=== PATIENT | male | born 1970 | race Caucasian/White ===

== ENCOUNTER 2023-12-31 16:48 | Observation (INO) | payer OTHER ==
[2023-12-31 17:00] VITALS: BP 150/89; PULSE 92; RESP 20; TEMP 98.5
--- NOTE | 2023-12-31 17:02 | ED ---
Chest Pain HPI <Tasia Mcgowan - Last Filed: 12/31/23 16:55> <Murphy Daniel - Last Filed: 12/31/23 19:37> - General Stated Complaint: Chest pain Time Seen by Provider: 12/31/23 16:55 - History of Present Illness Initial Comments: Quick [id number] male presenting to the ER with chief complaint of chest pain x 2 days. States the pain is in his mid chest and has been worsening in severity. Also states he has pain in his bilateral hands and lower back. He has never had this pain before. Denies blood thinners. Admits history of COPD. (Tasia Mcgowan) This is a 53-year-old male who presents to the emergency department stating that he is an alcoholic and he drank yesterday for sure and maybe even today but he cannot remember. Patient states ever since he stopped drinking today he started vomiting and having diarrhea. Patient states he is also having chest pain and he believes some shortness of breath. Patient states he continues to be nauseous at this time. Patient Nuys any fever chills or cough or patient states he does have a history of cirrhosis. Patient denies any back pain. Patient denies any headache patient denies numbness weakness. (Murphy Daniel) - Related Data Home Medications Medication Instructions Recorded Confirmed Albuterol Inhaler [Ventolin Hfa 1 puff INHALATION RT-Q4H PRN 12/31/23 12/31/23 Inhaler] Buprenorphine/Naloxone 8Mg/2Mg 0.5 film SL DAILY 12/31/23 12/31/23 [Suboxone 8-2Mg Film] Buprenorphine/Naloxone 8Mg/2Mg 0.5 film SL DAILY PRN 12/31/23 12/31/23 [Suboxone 8-2Mg Film] FLUoxetine HCL [PROzac] 10 mg PO DAILY 12/31/23 12/31/23 Famotidine 20 mg PO HS PRN 12/31/23 12/31/23 Folic Acid 1 mg PO DAILY 12/31/23 12/31/23 Furosemide [Lasix] 40 mg PO DAILY 12/31/23 12/31/23 Gabapentin [Neurontin] 600 mg PO BID 12/31/23 12/31/23 Ibuprofen [Motrin] 600 mg PO Q6H PRN 12/31/23 12/31/23 LORazepam 0.5 mg PO TID 12/31/23 12/31/23 Lactulose [Constulose] 20 gm PO TID PRN 12/31/23 12/31/23 Potassium Chloride ER [K-Dur 20] 20 meq PO DAILY 12/31/23 12/31/23 SILVER sulfADIAZINE CREAM 1 applic TOPICAL DAILY 12/31/23 12/31/23 [Silvadene Cream] Tamsulosin HCl [Flomax] 0.4 mg PO DAILY 12/31/23 12/31/23 amLODIPine [Norvasc] 5 mg PO DAILY 12/31/23 12/31/23 Allergies Allergy/AdvReac Type Severity Reaction Status Date / Time No Known Allergies Allergy Verified 12/31/23 19:09 Review of Systems ROS Other: All systems not noted in ROS Statement are negative. <Tasia Mcgowan - Last Filed: 12/31/23 16:55> ROS Other: All systems not noted in ROS Statement are negative. <Murphy Daniel - Last Filed: 12/31/23 19:37> ROS Statement: Those systems with pertinent positive or pertinent negative responses have been documented in the HPI. General Exam <Tasia Mcgowan - Last Filed: 12/31/23 16:55> <Murphy Daniel - Last Filed: 12/31/23 19:37> - General Exam Comments Initial Comments: Visual Physical Exam General: Well-appearing, nontoxic, no acute distress. Head: Normocephalic, atraumatic Eyes: PERRLA, EOMI ENT: Airway patent Chest: Nonlabored breathing Skin: No visual rash, normal skin tone Neuro: Alert and oriented 3 Musculoskeletal: No gross abnormalities (Tasia Mcgowan) GENERAL: Patient is well-developed and well-nourished. Patient is nontoxic and well- hydrated and is in mild distress. ENT: Neck is soft and supple. No significant lymphadenopathy is noted. Oropharynx is clear. Moist mucous membranes. Neck has full range of motion without eliciting any pain. EYES: The sclera were anicteric and conjunctiva were pink and moist. Extraocular movements were intact and pupils were equal round and reactive to light. Eyelids were unremarkable. PULMONARY: Unlabored respirations. Good breath sounds bilaterally. No audible rales rhonchi or wheezing was noted. CARDIOVASCULAR: There is a regular rate and rhythm without any murmurs gallops or rubs. ABDOMEN: Soft and nontender with normal bowel sounds. SKIN: Skin is clear with no lesions or rashes and otherwise unremarkable. NEUROLOGIC: Patient is alert and oriented x3. Cranial nerves II through XII are grossly intact. Motor and sensory are also intact. Normal speech, volume and content. Symmetrical smile. MUSCULOSKELETAL: Normal extremities with adequate strength and full range of motion. LYMPHATICS: No significant lymphadenopathy is noted PSYCHIATRIC: Normal psychiatric evaluation. (Murphy Daniel) Course Vital Signs 12/31/23 16:54 Temperature 98.5 F Pulse Rate 92 Respiratory 20 Rate Blood Pressure 150/89 O2 Sat by Pulse 98 Oximetry Chest Pain MDM <Tasia Mcgowan - Last Filed: 12/31/23 16:55> <Murphy Daniel - Last Filed: 12/31/23 19:37> - MDM I completed the quick note portion of this chart signed Tasia Mcgowan PA-C (Tasia Mcgowan) EKG is interpreted by myself. EKG shows a sinus rhythm at [address] was 169 QRS is 119 QT interval is 413 QTc is 440. Patient's EKG shows no ST segment Elevation was pt. sent in by a medical professional or institution ([facility], [facility], urgent care, hospital, or fci...) When possible be specific @ -No Did you speak to anyone other than the patient for history (EMS, parent, family, police, friend...)? What history was obtained from this source @ -Patient's significant other gave quite a bit of history because the patient was not feeling up to give all of the history. Did you review nursing and triage notes (agree or disagree)? Why? @ -I reviewed and agree with nursing and triage notes Were old charts reviewed (outside hosp., previous admission, EMS record, old EKG, old radiological studies, urgent care reports/EKG's, fci records)? Report findings @ -No old charts were reviewed Differential Diagnosis? @ -Differential Chest Pain: Stable Angina, Unstable Angina, STEMI, NSTEMI Aortic Dissection, Pneumothorax, Musculoskeletal, Esophageal Spasm GERD, Cholecystitis, Pancreatitis, Zoster, this is not meant to be an all-inclusive list. Alcohol withdrawal, alcohol intoxication, EKG interpreted by me (3pts min.). @ -As above X-rays interpreted by me (1pt min.). @ -Chest x-ray shows some slight pulmonary edema CT interpreted by me (1pt min.). @ -None done U/S interpreted by me (1pt. min.). @ -None done What testing was considered but not performed or refused? (CT, X-rays, U/S, labs)? Why? @ -None What meds were considered but not given or refused? Why? @ -None Did you discuss the management of the patient with other professionals (professionals i.e. , PA, [facility], lab, RT, psych nurse, social worker clinical, blind eyeletter, teacher, president and chief commercial officer, rn field case manager)? Give summary @ -I spoke with sound physicians agreed to admit the patient to the patient wrote admitting orders Was smoking cessation discussed for >3mins.? @ -No Was critical care preformed (if so, how long)? @ -No Were there social determinants of health that impacted care today? How? (Homelessness, low income, unemployed, alcoholism, drug addiction, transportation, low edu. Level, literacy, decrease access to med. care, alf, rehab)? @ -No Was there de-escalation of care discussed even if they declined (Discuss DNR or withdrawal of care, Hospice)? DNR status @ -No What co-morbidities impacted this encounter? (DM, HTN, Smoking, COPD, CAD, Cancer, CVA, ARF, Chemo, Hep., AIDS, mental health diagnosis, sleep apnea, morbid obesity)? @ -None Was patient admitted / discharged? Hospital course, mention meds given and route, prescriptions, significant lab abnormalities, going to OR and other pertinent info. @ -Patient was intoxicated. Patient did receive her liter of fluid but because of the x-ray also received some Lasix. Patient received Zofran for the nausea and was feeling better. Patient's initial troponin was negative but patient will be admitted for chest pain and cardiology will be consulted Undiagnosed new problem with uncertain prognosis? @ -No Drug Therapy requiring intensive monitoring for toxicity (Heparin, Nitro, Insulin, Cardizem)? @ -No Were any procedures done? @ -No Diagnosis/symptom? @ -Chest pain Acute, or Chronic, or Acute on Chronic? @ -Acute Uncomplicated (without systemic symptoms) or Complicated (systemic symptoms)? @ -Complicated Side effects of treatment? @ -No Exacerbation, Progression, or Severe Exacerbation? @ -No Poses a threat to life or bodily function? How? (Chest pain, USA, [place], pneumonia, PE, COPD, DKA, ARF, appy, cholecystitis, CVA, Diverticulitis, Homicidal, Suicidal, threat to staff... and all critical care pts) @ -Yes this could lead to an RI and endorgan dysfunction Diagnosis/symptom? @ -Alcohol intoxication Acute, or Chronic, or Acute on Chronic? @ -Acute Uncomplicated (without systemic symptoms) or Complicated (systemic symptoms)? @ -Complicated Side effects of treatment? @ -None Exacerbation, Progression, or Severe Exacerbation] @ -No Poses a threat to life or bodily function? @ -No (Murphy Daniel) Disposition <Tasia Mcgowan - Last Filed: 12/31/23 16:55> Time of Disposition: 19:37 <Murphy Daniel - Last Filed: 12/31/23 19:37> Clinical Impression: Chest pain, Alcohol intoxication Disposition: ADMITTED IP TO THIS HOSP Referrals: Timothy Huynh DO [Primary Care Provider] - 1-2 days
[2023-12-31] MEDS: ONDANSETRON 4 MG/2 ML VIAL IVP STA (17:38)
[2023-12-31] MEDS: SODIUM CHLORIDE 0.9% 1,000 ML IV ONE (17:39)
[2023-12-31 17:43] LABS: Basophils % (A) 0 %; Eosinophils # (A) 0.1 k/uL (0-0.7); Eosinophils % (A) 1 %; HCT 37.5 % (39.0-53.0); HGB 12.4 gm/dL (13.0-17.5); Lymphocytes # (A) 1.2 k/uL (1.0-4.8); Lymphocytes % (A) 13 %; MCH 32.8 pg (25.0-35.0); MCHC 33.1 g/dL (31.0-37.0); MCV 99.1 fL (80.0-100.0); Mean Platelet Volume 6.8; Monocytes # (A) 0.5 k/uL (0-1.0); Monocytes % (A) 5 %; Neutrophils # (A) 7.3 k/uL (1.3-7.7); Neutrophils % (A) 79 %; Platelet Count 158 k/uL (150-450); RBC 3.78 m/uL (4.30-5.90); WBC 9.3 k/uL (3.8-10.6)
[2023-12-31 17:53] LABS: INR 1.4 (<1.2); Partial Thromboplastin Time 32.9 sec (22.0-30.0); Prothrombin Time 14.1 sec (10.0-12.5)
[2023-12-31 17:56] LABS: Magnesium 1.6 mg/dL (1.6-2.3)
[2023-12-31 17:57] LABS: ALT 34 U/L (4-49); AST 109 U/L (17-59); African American GFR (CKD) >90 (>60 ml/min/1.73 sqM); Albumin 3.5 g/dL (3.5-5.0); Alkaline Phosphatase 136 U/L (38-126); Anion Gap 7 mmol/L; Blood Urea Nitrogen 2 mg/dL (9-20); Calcium 8.2 mg/dL (8.4-10.2); Carbon Dioxide 28 mmol/L (22-30); Chloride 109 mmol/L (98-107); Glucose 151 mg/dL (74-99); Lipase 113 U/L (23-300); Non-African American GFR(CKD) >90 (>60 ml/min/1.73 sqM); Potassium 3.8 mmol/L (3.5-5.1); Sodium 144 mmol/L (137-145); Total Protein 8.3 g/dL (6.3-8.2)
--- NOTE | 2023-12-31 18:04 | XR ---
EXAMINATION TYPE: XR chest 2V DATE OF EXAM: 12/31/2023 COMPARISON: None HISTORY: 53-year-old male with chest pain TECHNIQUE: AP and lateral views FINDINGS: Heart mildly enlarged. Diffuse interstitial and vascular prominence. No consolidation or pleural effu sergio. There is large appearance to the right main pulmonary artery on the lateral view. IMPRESSION: Correlate for CHF with pulmonary vascular congestion. [facility], , 12/31/2023 6:01 PM
[2023-12-31] MEDS ORDERED: FUROSEMIDE 10 MG/ML 4 ML VIAL IV STA (18:36)
[2023-12-31] MEDS ORDERED: ASPIRIN 81 MG PO STA (19:37)
[2023-12-31] MEDS ORDERED: NITROGLYCERIN SL TABS 0.4 MG TAB SUBLINGUAL PRN (19:37)
[2023-12-31] MEDS ORDERED: LORazepam 2 MG/ML INJ IV PRN ×2 (19:40)
[2023-12-31] MEDS ORDERED: LORazepam 0.5 MG TAB PO PRN (19:40)
[2023-12-31] MEDS ORDERED: THIAMINE 100 MG/ML 2 ML VIAL IM STA (19:40)
[2023-12-31] MEDS ORDERED: LORazepam 1 MG TAB PO PRN ×2 (19:40)
[2024-01-01] MEDS ORDERED: NITROGLYCERIN OINT 1 INCH/GM PACKET TOPICAL SCH
[2024-01-01] MEDS ORDERED: ASPIRIN 325 MG TAB PO SCH (09:00)
== END 2023-12-31 20:40 | disposition left against medical advice (07) ==
LOC: EC 16:48 → 6NMEDSUR 19:17
PROVIDERS: ADMIT Student in an Organized Health Care Education/Training Program; ATTEND Student in an Organized Health Care Education/Training Program
DX: R07.89 Other chest pain (principal); F10.229 Alcohol dependence with intoxication, unspecified; K74.60 Unspecified cirrhosis of liver; J44.9 Chronic obstructive pulmonary disease, unspecified; M54.50 Low back pain, unspecified; M79.642 Pain in left hand; M79.641 Pain in right hand; R11.2 Nausea with vomiting, unspecified; R19.7 Diarrhea, unspecified; R06.02 Shortness of breath; Z79.899 Other long term (current) drug therapy
CPT/HCPCS: 96361; 96374; 99285; 36415; 93005; 83880; 80053; 83690; 83735; 84484; 85025; 85610; 85730; 71046; G0480; J2405; 80320

== ENCOUNTER 2024-01-18 17:55 | Inpatient (IN) | payer OTHER ==
--- NOTE | 2024-01-18 18:34 | ED ---
Extremity Problem HPI - General Chief complaint: Skin/Abscess/Foreign Body Stated complaint: ETOH R leg infection Time Seen by Provider: 01/18/24 18:07 Source: patient, family, RN notes reviewed, old records reviewed Mode of arrival: ambulatory Limitations: no limitations - History of Present Illness Initial comments: This is a 53-year-old male to the ER for evaluation today. This patient presents today for significant lower extremity swelling edema cellulitis drainage history of cellulitis on antibiotics with worsening symptoms. Significant history of alcohol disease and alcoholism diabetes coronary artery disease heart failure. MD Complaint: extremity pain, extremity swelling, other (Drainage from the right leg with increasing cellulitis and erythema) -: days(s) Location: right, lower extremity -: Yes myalgia, Yes arthralgia Radiation: proximal Severity scale (1-10): 7 Quality: aching Consistency: constant Improves with: nothing Worsens with: nothing Associated Symptoms: denies other symptoms - Related Data Home Medications Medication Instructions Recorded Confirmed Albuterol Inhaler [Ventolin Hfa 1 puff INHALATION RT-Q4H PRN 12/31/23 01/18/24 Inhaler] Buprenorphine/Naloxone 8Mg/2Mg 0.5 film SL DAILY 12/31/23 01/18/24 [Suboxone 8-2Mg Film] Buprenorphine/Naloxone 8Mg/2Mg 0.5 film SL DAILY PRN 12/31/23 01/18/24 [Suboxone 8-2Mg Film] FLUoxetine HCL [PROzac] 10 mg PO DAILY 12/31/23 01/18/24 Famotidine 20 mg PO HS PRN 12/31/23 01/18/24 Folic Acid 1 mg PO DAILY 12/31/23 01/18/24 Gabapentin [Neurontin] 600 mg PO BID 12/31/23 01/18/24 Lactulose [Constulose] 20 gm PO TID PRN 12/31/23 01/18/24 Potassium Chloride ER [K-Dur 20] 20 meq PO DAILY 12/31/23 01/18/24 SILVER sulfADIAZINE CREAM 1 applic TOPICAL DAILY 12/31/23 01/18/24 [Silvadene Cream] Tamsulosin HCl [Flomax] 0.4 mg PO DAILY 12/31/23 01/18/24 amLODIPine [Norvasc] 5 mg PO DAILY 12/31/23 01/18/24 traMADol HCL 50 mg PO TID PRN 01/18/24 01/18/24 Previous Rx's Medication Instructions Recorded Cephalexin [Keflex] 500 mg PO Q6HR 7 Days #28 cap 01/22/24 Furosemide [Lasix] 40 mg PO Q12HR #120 tab 01/22/24 Thiamine [Vitamin B-1] 100 mg PO DAILY #90 tab 01/22/24 Allergies Allergy/AdvReac Type Severity Reaction Status Date / Time chlordiazepoxide Allergy Hallucinati Verified 01/18/24 20:38 [From Librium] ons lisinopril Allergy Anaphylaxis Verified 01/18/24 20:38 Review of Systems ROS Statement: Those systems with pertinent positive or pertinent negative responses have been documented in the HPI. ROS Other: All systems not noted in ROS Statement are negative. Past Medical History Past Medical History: Heart Failure, COPD, Hypertension, Liver Disease Additional Past Medical History / Comment(s): cirrhosis, alcoholism, ascites Additional Past Surgical History / Comment(s): L Lung removed Smoking Status: Never smoker Past Alcohol Use History: Abuse, Heavy Past Drug Use History: None Reported General Exam Limitations: no limitations General appearance: alert, in no apparent distress Head exam: Present: atraumatic, normocephalic, normal inspection Eye exam: Present: normal appearance, PERRL, EOMI. Absent: scleral icterus, conjunctival injection, periorbital swelling ENT exam: Present: normal exam, mucous membranes moist Neck exam: Present: normal inspection. Absent: tenderness, meningismus, lymphadenopathy Respiratory exam: Present: normal lung sounds bilaterally. Absent: respiratory distress, wheezes, rales, rhonchi, stridor Cardiovascular Exam: Present: regular rate, normal rhythm, normal heart sounds. Absent: systolic murmur, diastolic murmur, rubs, gallop, clicks GI/Abdominal exam: Present: soft, normal bowel sounds. Absent: distended, t enderness, guarding, rebound, rigid Extremities exam: Present: normal inspection, full ROM, normal capillary refill. Absent: tenderness, pedal edema, joint swelling, calf tenderness Back exam: Present: normal inspection Neurological exam: Present: alert, oriented X3, CN II-XII intact Psychiatric exam: Present: normal affect, normal mood Skin exam: Present: warm, dry, intact, normal color. Absent: rash Course Vital Signs 1101/18/24 01/18/24 17:58 19:06 20:06 Temperature 98.2 F 97.9 F Pulse Rate 76 80 79 Respiratory 17 18 19 Rate Blood Pressure 141/78 131/77 132/72 O2 Sat by Pulse 95 95 96 Oximetry 01/18/24 01/19/24 01/19/24 22:48 00:51 02:00 Temperature 97.9 F Pulse Rate 80 79 86 Respiratory 18 18 20 Rate Blood Pressure 139/86 130/74 114/60 O2 Sat by Pulse 93 L 95 96 Oximetry 01/19/24 01/19/24 01/19/24 06:00 07:36 07:39 Temperature 97.8 F Pulse Rate 85 92 Respiratory 20 17 Rate Blood Pressure 130/78 127/74 O2 Sat by Pulse 96 95 94 L Oximetry 01/19/24 01/19/24 01/19/24 08:34 09:42 10:35 Temperature Pulse Rate 86 93 81 Respiratory 16 20 16 Rate Blood Pressure 138/79 121/71 O2 Sat by Pulse 94 L 96 Oximetry 01/19/24 01/19/24 01/19/24 11:46 12:33 13:00 Temperature Pulse Rate 85 93 84 Respiratory 17 17 18 Rate Blood Pressure 133/79 109/63 O2 Sat by Pulse 93 L 93 L Oximetry 01/19/24 01/19/24 01/19/24 14:00 15:00 17:50 Temperature Pulse Rate 75 92 80 Respiratory 16 15 18 Rate Blood Pressure 165/83 109/63 O2 Sat by Pulse 94 L 90 L Oximetry 01/19/24 01/19/24 01/20/24 19:41 22:22 07:22 Temperature 99.1 F Pulse Rate 85 98 102 H Respiratory 19 17 18 Rate Blood Pressure 149/98 145/92 O2 Sat by Pulse 92 L 96 99 Oximetry 01/20/24 01/20/24 01/20/24 11:20 13:08 15:57 Temperature 99.0 F 98.6 F Pulse Rate 98 79 83 Respiratory 18 18 18 Rate Blood Pressure 135/77 120/73 127/74 O2 Sat by Pulse 94 L 98 94 L Oximetry - Reevaluation(s) Reevaluation #1: 01/18/24 19:15 Medical records reviewed Reevaluation #2: 01/18/24 19:15 Patient symptoms unchanged Reevaluation #3: 01/18/24 19:15 Patient informed of results questions answered Reevaluation #4: Was pt. sent in by a medical professional or institution ([facility], [facility], urgent care, hospital, or penitentiary...) When possible be specific @ -no Did you speak to anyone other than the patient for history (EMS, parent, family, police, friend...)? What history was obtained from this source @ -no Did you review nursing and triage notes (agree or disagree)? Why? @ -agree Are old charts reviewed (outside hosp., previous admission, EMS record, old EKG, old radiological studies, urgent care reports/EKG's, penitentiary records)? Report findings @ -yes Differential Diagnosis (chest pain, altered mental status, abdominal pain women, abdominal pain men, vaginal bleeding, weakness, fever, dyspnea, syncope, headache, dizziness, GI bleed, back pain, seizure, CVA, palpatations, mental health, musculoskeletal)? @ -prior EKG interpreted by me (3pts min.). @ -yes X-rays interpreted by me (1pt min.). @ -yes negative for acute disease CT interpreted by me (1pt min.). @ -Yes negative for acute disease U/S interpreted by me (1pt. min.). @ -no What testing was considered but not performed or refused? (CT, X-rays, U/S, labs)? Why? @ -none What meds were considered but not given or refused? Why? @ -none Did you discuss the management of the patient with other professionals (professionals i.e. [facility], [facility], lab, RT, psych nurse, social work supervisor, hand tool filer, teacher, telecommunications officer, welfare case worker)? Give summary @ -no Was smoking cessation discussed for >3mins.? @ -no Was critical care preformed (if so, how long)? @ -no Were there social determinants of health that impacted care today? How? (Ho melessness, low income, unemployed, alcoholism, drug addiction, transportation, low edu. Level, literacy, decrease access to med. care, retirement, rehab)? @ -none Was there de-escalation of care discussed even if they declined (Discuss DNR or withdrawal of care, Hospice)? DNR status @ -no What co-morbidities impacted this encounter? (DM, HTN, Smoking, COPD, CAD, Cancer, CVA, ARF, Chemo, Hep., AIDS, mental health diagnosis, sleep apnea, morbid obesity)? @ -none Was patient admitted / discharged? Hospital course, mention meds given and route, prescriptions, significant lab abnormalities, going to OR and other pertinent info. @ - 53 male with lower extremity swelling significant bilateral lower extremity swelling right lower extremity swelling edema and redness worsening despite antibiotics, significant abdominal pain and swelling concern for ascites. Patient admit for IV antibiotics Admitted Undiagnosed new problem with uncertain prognosis? @ -no Drug Therapy requiring intensive monitoring for toxicity (Heparin, Nitro, Insulin, Cardizem)? @ -no Were any procedures done? @ -no Diagnosis/symptom? @ -Abdominal pain ascites edema lower extremity edema and cellulitis Acute, or Chronic, or Acute on Chronic? @ -Acute Uncomplicated (without systemic symptoms) or Complicated (systemic symptoms)? @ -Complicated Side effects of treatment? @ -no Exacerbation, Progression, or Severe Exacerbation? @ -exacerbation Poses a threat to life or bodily function? How? (Chest pain, [place], [place], pneumonia, PE, COPD, DKA, ARF, appy, cholecystitis, CVA, Diverticulitis, Homicidal, Suicidal, threat to staff... and all critical care pts) @ -yes comorbid conditions Reevaluation #5: Differential Fever: Pneumonia, viral URI, endocarditis, myocarditis, pericarditis, otitis, sinusitis, peritonsillar Abscess, retropharyngeal Abscess, epiglottitis, peritonitis, appendicitis, Meghan cystitis, diverticulitis, hepatitis, colitis, UTI, PID, TOA, pyelonephritis, prostatitis, epididymitis, meningitis, encephalitis, pulmonary embolism, CVA, thyroid storm, pancreatitis, adrenal crisis, cavernous sinus thrombosis, this is not meant to be an all-inclusive list. - Consultations Consultation #1: Admitting physicians who agreed to admit this patient Medical Decision Making - Medical Decision Making 53 male with lower extremity swelling significant bilateral lower extremity swelling right lower extremity swelling edema and redness worsening despite antibiotics, significant abdominal pain and swelling concern for ascites. Patient admit for IV antibiotics - Lab Data Result diagrams: 01/19/24 06:17 01/21/24 05:36 Lab Results 01/18/24 01/18/24 01/18/24 Range/Units 18:47 18:47 18:47 WBC 11.4 H (3.8-10.6) k/uL RBC 3.69 L (4.30-5.90) m/uL Hgb 12.5 L (13.0-17.5) gm/dL Hct 36.7 L (39.0-53.0) % MCV 99.4 (80.0-100.0) fL MCH 33.9 (25.0-35.0) pg MCHC 34.1 (31.0-37.0) g/dL RDW 14.5 (11.5-15.5) % Plt Count 125 L (150-450) k/uL MPV 6.5 Neutrophils % 75 % Lymphocytes % 14 % Monocytes % 6 % Eosinophils % 2 % Basophils % 1 % Neutrophils # 8.5 H (1.3-7.7) k/uL Lymphocytes # 1.6 (1.0-4.8) k/uL Monocytes # 0.7 (0-1.0) k/uL Eosinophils # 0.2 (0-0.7) k/uL Basophils # 0.1 (0-0.2) k/uL Macrocytosis Slight PT 14.1 H (10.0-12.5) sec INR 1.3 H (<1.2) APTT 32.6 H (22.0-30.0) sec Sodium 141 (137-145) mmol/L Potassium 3.6 (3.5-5.1) mmol/L Chloride 107 (98-107) mmol/L Carbon Dioxide 27 (22-30) mmol/L Anion Gap 7 mmol/L BUN 5 L (9-20) mg/dL Creatinine 0.55 L (0.66-1.25) mg/dL Est GFR (CKD-EPI)AfAm >90 (>60 ml/min/1.73 sqM) Est GFR (CKD-EPI)NonAf >90 (>60 ml/min/1.73 sqM) Glucose 119 H (74-99) mg/dL Estimated Ave Glu mg/dL mg/dL Hemoglobin A1c (<=6.0) % Calcium 8.4 (8.4-10.2) mg/dL Phosphorus 4.7 H (2.5-4.5) mg/dL Magnesium 2.1 (1.6-2.3) mg/dL Total Bilirubin 2.1 H (0.2-1.3) mg/dL AST 214 H (17-59) U/L ALT 74 H (4-49) U/L Alkaline Phosphatase 160 H (38-126) U/L Troponin I (0.000-0.034) ng/mL NT-Pro-B Natriuret Pep 114 pg/mL Total Protein 8.8 H (6.3-8.2) g/dL Albumin 3.7 (3.5-5.0) g/dL Lipase 225 (23-300) U/L Serum Alcohol 327 H* mg/dL 01/18/24 01/18/24 Range/Units 18:47 18:47 WBC (3.8-10.6) k/uL RBC (4.30-5.90) m/uL Hgb (13.0-17.5) gm/dL Hct (39.0-53.0) % MCV (80.0-100.0) fL MCH (25.0-35.0) pg MCHC (31.0-37.0) g/dL RDW (11.5-15.5) % Plt Count (150-450) k/uL MPV Neutrophils % % Lymphocytes % % Monocytes % % Eosinophils % % Basophils % % Neutrophils # (1.3-7.7) k/uL Lymphocytes # (1.0-4.8) k/uL Monocytes # (0-1.0) k/uL Eosinophils # (0-0.7) k/uL Basophils # (0-0.2) k/uL Macrocytosis PT (10.0-12.5) sec INR (<1.2) APTT (22.0-30.0) sec Sodium (137-145) mmol/L Potassium (3.5-5.1) mmol/L Chloride (98-107) mmol/L Carbon Dioxide (22-30) mmol/L Anion Gap mmol/L BUN (9-20) mg/dL Creatinine (0.66-1.25) mg/dL Est GFR (CKD-EPI)AfAm (>60 ml/min/1.73 sqM) Est GFR (CKD-EPI)NonAf (>60 ml/min/1.73 sqM) Glucose (74-99) mg/dL Estimated Ave Glu mg/dL 105 mg/dL Hemoglobin A1c 5.3 (<=6.0) % Calcium (8.4-10.2) mg/dL Phosphorus (2.5-4.5) mg/dL Magnesium (1.6-2.3) mg/dL Total Bilirubin (0.2-1.3) mg/dL AST (17-59) U/L ALT (4-49) U/L Alkaline Phosphatase (38-126) U/L Troponin I <0.012 (0.000-0.034) ng/mL NT-Pro-B Natriuret Pep pg/mL Total Protein (6.3-8.2) g/dL Albumin (3.5-5.0) g/dL Lipase (23-300) U/L Serum Alcohol mg/dL - EKG Data -: EKG Interpreted by Me (EKG is sinus 72 QRS 126 QTc 439) - Radiology Data Radiology results: report reviewed (Chest x-ray positive for fluid overload, CT abdomen pelvis negative for acute disease), image reviewed Disposition Clinical Impression: Anasarca, Alcohol intoxication, Pulmonary edema, Bilateral lower leg cellulitis, Venous stasis dermatitis Disposition: ADMITTED IP TO THIS [facility] Time of Disposition: 20:40
[2024-01-18 18:59] LABS: Basophils # (A) 0.1 k/uL (0-0.2); Basophils % (A) 1 %; Eosinophils # (A) 0.2 k/uL (0-0.7); Eosinophils % (A) 2 %; HCT 36.7 % (39.0-53.0); HGB 12.5 gm/dL (13.0-17.5); Lymphocytes # (A) 1.6 k/uL (1.0-4.8); Lymphocytes % (A) 14 %; MCH 33.9 pg (25.0-35.0); MCHC 34.1 g/dL (31.0-37.0); MCV 99.4 fL (80.0-100.0); Macrocytosis Slight; Mean Platelet Volume 6.5; Monocytes # (A) 0.7 k/uL (0-1.0); Monocytes % (A) 6 %; Neutrophils # (A) 8.5 k/uL (1.3-7.7); Neutrophils % (A) 75 %; Platelet Count 125 k/uL (150-450); RBC 3.69 m/uL (4.30-5.90); RDW 14.5 % (11.5-15.5); WBC 11.4 k/uL (3.8-10.6)
[2024-01-18] MEDS: ONDANSETRON 4 MG/2 ML VIAL IVP STA (19:00)
[2024-01-18] MEDS: MORPHINE SULFATE 4 MG/ML SYRINGE IV STA (19:04)
[2024-01-18] MEDS: SODIUM CHLORIDE 0.9% 1,000 ML IV STA (19:04)
[2024-01-18] MEDS ORDERED: LORazepam 1 MG TAB PO PRN ×2 (19:15)
[2024-01-18] MEDS ORDERED: LORazepam 2 MG/ML INJ IV PRN ×3 (19:15)
[2024-01-18 19:18] LABS: INR 1.3 (<1.2); Partial Thromboplastin Time 32.6 sec (22.0-30.0); Prothrombin Time 14.1 sec (10.0-12.5)
[2024-01-18 19:19] LABS: ALT 74 U/L (4-49); AST 214 U/L (17-59); African American GFR (CKD) >90 (>60 ml/min/1.73 sqM); Albumin 3.7 g/dL (3.5-5.0); Alkaline Phosphatase 160 U/L (38-126); Anion Gap 7 mmol/L; Blood Urea Nitrogen 5 mg/dL (9-20); Calcium 8.4 mg/dL (8.4-10.2); Carbon Dioxide 27 mmol/L (22-30); Chloride 107 mmol/L (98-107); Glucose 119 mg/dL (74-99); Lipase 225 U/L (23-300); Magnesium 2.1 mg/dL (1.6-2.3); Non-African American GFR(CKD) >90 (>60 ml/min/1.73 sqM); Phosphorus 4.7 mg/dL (2.5-4.5); Potassium 3.6 mmol/L (3.5-5.1); Sodium 141 mmol/L (137-145); Total Bilirubin 2.1 mg/dL (0.2-1.3); Total Protein 8.8 g/dL (6.3-8.2)
[2024-01-18 19:24] LABS: NT-Pro-B-Type Natriuretic Pept 114 pg/mL
[2024-01-18 19:56] LABS: Alcohol 327 mg/dL
--- NOTE | 2024-01-18 20:16 | XR ---
EXAMINATION TYPE: XR chest 2V DATE OF EXAM: 01/18/2024 8:03 PM COMPARISON: Chest radiographs from 2523 CLINICAL INDICATION: Male, 53 years old with history of Weakness; [facility] TECHNIQUE: XR chest 2V Frontal and lateral views of the chest. FINDINGS: Lungs/Pleura: There is no evidence of pleural effusion, focal consolidation, or pneumothorax. Pulmonary vascularity: Pulmonary vascular congestion. Heart/mediastinum: Cardiomediastinal silhouette is enlarged and stable. Musculoskeletal: No acute osseous pathology. IMPRESSION: Cardiomegaly and mild pulmonary vascular congestion. Correlate with BNP for congestive heart failure. [facility], , 01/18/2024 8:13 PM
[2024-01-18] MEDS ORDERED: NALOXONE 0.4 MG/ML 1 ML VIAL IV PRN (20:42)
[2024-01-18] MEDS: HYDROmorphone 0.5 MG/0.5 ML SYRINGE IVP PRN (22:51)
[2024-01-18] MEDS ORDERED: FAMOTIDINE 20 MG TAB PO PRN (22:59)
[2024-01-18] MEDS ORDERED: ALBUTEROL NEBULIZED 2.5 MG/3 ML INHALATION PRN (22:59)
--- NOTE | 2024-01-19 00:06 | P.HPIM ---
History of Present Illness H&P Date: 01/18/24 Chief Complaint: Right lower extremity infection History of present illness; 53-year-old male COPD (not on oxygen at home), cirrhosis, heart failure, hypertension, alcohol use disorder, history of cellulitis presents with complaints of right leg infection and swelling. Repo rts 1 month ago he was treated at [facility] for cellulitis of the right lower extremity, at that time he was treated with IV antibiotics which were then converted to oral which she completed as an outpatient. Reports for the last 2 weeks he has had to sleep in a recliner because when he sleeps in his bed he becomes very short of breath and is unable to breathe. Reports he is prescribed Lasix 40 mg p.o. daily but has not been taking it. States he has never seen his legs as swollen as they are now, reports they are 4-5 times larger than his normal baseline. Reports he has not been taking any of his prescription medications for approximately 1 month. Reports his last drink was 4:30 PM today and they normally drinks half a pint of liquor and 2-3 beers daily. Reports he is done with drinking and would like to quit. Surgical history: Left lower lobectomy Family history: Diabetes mellitus and hypertension Social history: Heavy alcohol use EKG done in the ER showed heart rate of 72 bpm, no ST segment elevation or depression seen, no T-wave inversions seen. Uncertain regular rhythm, QTc 439 ms ER CXR: Cardiomegaly and mild pulmonary vascular congestion. ER CT ABD: Taken but pending read. Patient admitted to internal medicine service REVIEW OF SYSTEMS: As stated above in HPI. The rest of the 14-point review of systems is negative. PHYSICAL EXAMINATION: GENERAL: The patient is alert and oriented x3. Well developed, well nourished. Obese. HEENT: Pupils are round and equally reacting to light. EOMI. No scleral icterus. No conjunctival pallor. Normocephalic, atraumatic. CARDIOVASCULAR: S1 and S2 present. No murmurs, rubs, or gallops. PULMONARY: Chest is clear to auscultation on the right, decreased lung sounds on the left base. ABDOMEN: Soft, tender, significantly distended, diminished bowel sounds, no palpable organomegaly. negative transmitted thrill MUSCULOSKELETAL: No joint swelling or deformity. EXTREMITIES: No cyanosis, clubbing,4+ pitting edema bilaterally up to the knee, NEUROLOGICAL: Gross neurological examination did not reveal any focal deficits. SKIN: No rashes. 4+ pitting edema bilaterally up to the knee, erythema appreciated on the medial aspect of the right foot with what appears to be a central healing scab from the prior cellulitis. Assessment:53-year-old male COPD (not on oxygen at home), cirrhosis, heart failure, hypertension, alcohol use disorder, history of cellulitis presents with complaints of right leg infection. Patient admitted to internal medicine for further workup of right lower extremity cellulitis and bilateral lower extremity swelling Plan: #Right lower extremity cellulitis: -follow up blood culture WBC 11.4 and neutrophils 8.5 -Continue Rocephin -ID consulted #Alcohol use disorder: #Transaminitis: >2:1 AST:ALT indicating potential alcoholic hepatitis #Previous diagnosis of cirrhosis: -AST 214, ALT 74, lipase 225 -Serum alcohol 327 -Benzo per [place] protocol PRN -Continue thiamine, folate, and Theragran seizure precautions monitor for alcohol withdrawal fall precautions #Anemia: Potentially secondary to alcohol use disorder -Hemoglobin 12.5 and MCV 99.4 -Ordered folate and B12 levels -Continue to monitor #History of heart failure: Unknown EF: peripheral edema , multifactorial , secondary to liver cirrhosis and suspected CHF -Troponin less than 0.012, BNP 814 -IV Lasix 40 mg twice daily -Echo ordered check ammonia F: NS 20 cc/h E: Thiamine, folate, and multivitamin N: Regular diet DVT ppx: Lovenox 40 SQ daily GI ppx: Protonix 40 mg p.o. daily Dispo: Pending clinical course. Lizy Suresh MD PGY-1 FM Dictation was produced using [employer] dictation software. please excuse any grammatical, word or spelling errors. Past Medical History Past Medical History: Heart Failure, COPD, Hypertension, Liver Disease Additional Past Medical History / Comment(s): cirrhosis, alcoholism, ascites Additional Past Surgical History / Comment(s): L Lung removed Smoking Status: Never smoker Past Alcohol Use History: Abuse, Heavy Past Drug Use History: None Reported Medications and Allergies Home Medications Medication Instructions Recorded Confirmed Type Albuterol Inhaler [Ventolin Hfa 1 puff INHALATION RT-Q4H PRN 12/31/23 01/18/24 History Inhaler] Buprenorphine/Naloxone 8Mg/2Mg 0.5 film SL DAILY 12/31/23 01/18/24 History [Suboxone 8-2Mg Film] Buprenorphine/Naloxone 8Mg/2Mg 0.5 film SL DAILY PRN 12/31/23 01/18/24 History [Suboxone 8-2Mg Film] FLUoxetine HCL [PROzac] 10 mg PO DAILY 12/31/23 01/18/24 History Famotidine 20 mg PO HS PRN 12/31/23 01/18/24 History Folic Acid 1 mg PO DAILY 12/31/23 01/18/24 History Furosemide [Lasix] 40 mg PO DAILY 12/31/23 01/18/24 History Gabapentin [Neurontin] 600 mg PO BID 12/31/23 01/18/24 History Ibuprofen [Motrin] 600 mg PO Q6H PRN 12/31/23 01/18/24 History LORazepam 0.5 mg PO TID 12/31/23 01/18/24 History Lactulose [Constulose] 20 gm PO TID PRN 12/31/23 01/18/24 History Potassium Chloride ER [K-Dur 20] 20 meq PO DAILY 12/31/23 01/18/24 History SILVER sulfADIAZINE CREAM 1 applic TOPICAL DAILY 12/31/23 01/18/24 History [Silvadene Cream] Tamsulosin HCl [Flomax] 0.4 mg PO DAILY 12/31/23 01/18/24 History amLODIPine [Norvasc] 5 mg PO DAILY 12/31/23 01/18/24 History traMADol HCL 50 mg PO TID PRN 01/18/24 01/18/24 History Allergies Allergy/AdvReac Type Severity Reaction Status Date / Time chlordiazepoxide Allergy Hallucinati Verified 01/18/24 20:38 [From Librium] ons lisinopril Allergy Anaphylaxis Verified 01/18/24 20:38 Physical Exam Vitals: Vital Signs Temp Pulse Resp BP Pulse Ox 01/18/24 22:48 80 18 139/86 93 L 01/18/24 20:06 97.9 F 79 19 132/72 96 01/18/24 19:06 80 18 131/77 95 01/18/24 17:58 98.2 F 76 17 141/78 95 Intake and Output 01/18/24 01/18/24 01/19/24 14:59 22:59 06:59 Other: Weight 113.398 kg Results CBC & Chem 7: 01/18/24 18:47 01/18/24 18:47 Labs: Abnormal Lab Results - Last 24 Hours (Table) 01/18/24 01/18/24 01/18/24 Range/Units 18:47 18:47 18:47 WBC 11.4 H (3.8-10.6) k/uL RBC 3.69 L (4.30-5.90) m/uL Hgb 12.5 L (13.0-17.5) gm/dL Hct 36.7 L (39.0-53.0) % Plt Count 125 L (150-450) k/uL Neutrophils # 8.5 H (1.3-7.7) k/uL PT 14.1 H (10.0-12.5) sec INR 1.3 H (<1.2) APTT 32.6 H (22.0-30.0) sec BUN 5 L (9-20) mg/dL Creatinine 0.55 L (0.66-1.25) mg/dL Glucose 119 H (74-99) mg/dL Phosphorus 4.7 H (2.5-4.5) mg/dL Total Bilirubin 2.1 H (0.2-1.3) mg/dL AST 214 H (17-59) U/L ALT 74 H (4-49) U/L Alkaline Phosphatase 160 H (38-126) U/L Total Protein 8.8 H (6.3-8.2) g/dL Serum Alcohol 327 H* mg/dL Assessment and Plan Assessment: I have seen and evaluated the patient today. I Discussed the case with the resident and agree with the resident's findings I edited the assessment and plan as necessary as documented in the resident's note.
--- NOTE | 2024-01-19 00:09 | CT ---
EXAM: CT Abdomen and Pelvis Without Intravenous Contrast CLINICAL HISTORY: ITS.REASON CT Reason: pain,ascites TECHNIQUE: Axial computed tomography images of the abdomen and pelvis without intravenous contrast. CTDI is 15.9 mGy and DLP is 1139.4 mGy-cm. This CT exam was performed using one or more of the following dose reduction techniques: automated exposure control, adjustment of the mA and/or kV according to patient size, and/or use of iterative reconstruction technique. COMPARISON: No relevant prior studies available. FINDINGS: Lung bases: Atelectasis at the lung bases. ABDOMEN: Liver: Cirrhotic liver. Gallbladder and bile ducts: Unremarkable. Pancreas: Unremarkable. Spleen: Splenomegaly. Adrenals: Unremarkable. Kidneys and ureters: Unremarkable. No obstructing stones. No hydronephrosis. Stomach and bowel: Unremarkable. PELVIS: Appendix: No findings to suggest acute appendicitis. Bladder: Unremarkable. Reproductive: Unremarkable as visualized. ABDOMEN and PELVIS: Intraperitoneal space: No significant ascites. No free air. Bones/joints: Avascular necrosis in the femoral heads. Soft tissues: Lower extremity and scrotal soft tissue edema. Vasculature: Portosystemic varices. Lymph nodes: Enlarged reactive appearing inguinal lymph nodes. IMPRESSION: 1. Cirrhotic liver. 2. Atelectasis at the lung bases. 3. Splenomegaly. 4. Portosystemic varices. 5. No significant ascites. 6. 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 7. Lower extremity and scrotal soft tissue edema. 8. Enlarged reactive appearing inguinal lymph nodes.
[2024-01-19] MEDS ORDERED: DEXTROSE 50% SYRINGE 50 ML IVP PRN ×2 (00:26)
[2024-01-19] MEDS: MORPHINE SULFATE 4 MG/ML SYRINGE IV PRN (01:03)
[2024-01-19 07:35] LABS: Glucose,Whole Blood 112 mg/dL (70-110)
[2024-01-19] MEDS: INSULIN ASPART (NovoLOG) 100 UNIT/ML VIAL SQ SCH (07:38)
[2024-01-19] MEDS: PANTOPRAZOLE 40 MG TABLET PO SCH (07:55)
[2024-01-19] MEDS: GABAPENTIN 300 MG CAP PO SCH (08:19)
[2024-01-19] MEDS: FUROSEMIDE 10 MG/ML 4 ML VIAL IV SCH (08:19)
[2024-01-19] MEDS: amLODIPine 5 MG TAB PO SCH (08:20)
[2024-01-19] MEDS: FOLIC ACID 1 MG TAB PO SCH (08:20)
[2024-01-19] MEDS: THIAMINE 100 MG TAB PO SCH (08:20)
[2024-01-19] MEDS: TAMSULOSIN 0.4 MG CAP.ER.24H PO SCH (08:20)
[2024-01-19] MEDS: MULTIVITAMINS, THERA 1 EACH TAB PO SCH (08:20)
[2024-01-19] MEDS: FLUoxetine HCL 10 MG CAP PO SCH (08:46)
[2024-01-19] MEDS: ENOXAPARIN 40 MG/0.4 ML SYRINGE SQ SCH (09:10)
[2024-01-19 09:22] LABS: ALT 62 U/L (10-49); AST 166 U/L (14-35); Albumin 3.1 g/dL (3.8-4.9); Albumin/Globulin Ratio 0.67 Ratio (1.60-3.17); Alkaline Phosphatase 139 U/L (41-126); BUN/Creat Ratio 8.29 Ratio (12.00-20.00); Blood Urea Nitrogen 5.8 mg/dL (9.0-27.0); Calcium 8.4 mg/dL (8.7-10.3); Carbon Dioxide 22.5 mmol/L (21.6-31.8); Chloride 107 mmol/L (96-109); Globulin 4.6 g/dL (1.6-3.3); Glucose 115 mg/dL (70-110); Magnesium 2.2 mg/dL (1.5-2.4); Phosphorus 4.2 mg/dL (2.4-5.1); Potassium 3.8 mmol/L (3.5-5.5); Sodium 145 mmol/L (135-145); Total Bilirubin 1.6 mg/dL (0.3-1.2); Total Protein 7.7 g/dL (6.2-8.2)
[2024-01-19 09:30] LABS: Basophils % (A) 1.4 %; Eosinophils % (A) 2.7 %; HCT 33.6 % (39.6-50.0); HGB 11.4 g/dL (13.0-17.0); Lymphocytes # (A) 1.32 X 10*3/uL (0.90-5.00); MCH 33.5 pg (27.0-32.0); MCHC 33.9 g/dL (32.0-37.0); MCV 98.8 FL (80.0-97.0); Mean Platelet Volume 9.2 FL (9.5-12.2); Monocytes # (A) 0.71 X 10*3/uL (0.20-1.00); Monocytes % (A) 9.7 %; NRBC Per 100 WBC 0 X 10*3/uL (0.00-0.01); Neutrophils # (A) 4.98 X 10*3/uL (1.80-7.70); Neutrophils % (A) 67.7 %; Platelet Count 97 X 10*3/uL (140-440); WBC 7.35 X 10*3/uL (4.50-10.00)
[2024-01-19] MEDS: ONDANSETRON 4 MG/2 ML VIAL IVP PRN (09:50)
[2024-01-19] MEDS: LORazepam 0.5 MG TAB PO PRN (09:53)
--- NOTE | 2024-01-19 10:56 | CA ---
Transthoracic Echo Report Name: Chandan Noguera Age: 53 Gender: M : 1970 Exam Date: 01/19/2024 08:01 Exam Location: [place] [facility] Ht (in): 72 Wt (lb): 250 Ordering Physician: Lizy Suresh MD Attending/Referring Phys: Office Assistant Receptionist Avis Ortiz RDCS Procedure CPT: Indications: History of CHF, unknown EF Cardiac Hx: Technical Quality: Fair Contrast 1: Definity Total Dose (mL): 2 Contrast 2: Total Dose (mL): MEASUREMENTS (Male / Female) Normal Values 2D ECHO LV Diastolic Diameter PLAX 5.7 cm 4.2 - 5.9 / 3.9 - 5.3 cm LV Systolic Diameter PLAX 3.4 cm IVS Diastolic Thickness 1.3 cm 0.6 - 1.0 / 0.6 - 0.9 cm LVPW Diastolic Thickness 1.3 cm 0.6 - 1.0 / 0.6 - 0.9 cm LV Relative Wall Thickness 0.5 RV Internal Dim ED PLAX 2.7 cm LA Systolic Diameter LX 5.1 cm 3.0 - 4.0 / 2.7 - 3.8 cm LA Volume 78.5 cm??? 18 - 58 / 22 - 52 cm??? LA Volume Index 32.2 cm???/m??? 16 - 28 cm???/m??? M-MODE Aortic Root Diameter MM 3.4 cm LA Systolic Diameter MM 4.4 cm LA Ao Ratio MM 1.3 AV Cusp Separation MM 2.1 cm DOPPLER AV Peak Velocity 204.6 cm/s AV Peak Gradient 16.7 mmHg AV Mean Velocity 139.9 cm/s AV Mean Gradient 9.0 mmHg AV Velocity Time Integral 43.9 cm MV Area PHT 2.3 cm??? Mitral E Point Velocity 143.6 cm/s Mitral A Point Velocity 106.3 cm/s Mitral E to A Ratio 1.4 MV Deceleration Time 324.2 ms TR Peak Velocity 278.7 cm/s TR Peak Gradient 31.1 mmHg FINDINGS Left Ventricle Left ventricular ejection fraction is estimated at 55-60 %. Mildly increased septal wall thickness. Normal left ventricular systolic function with no obvious regional wall motion abnormalities. Right Ventricle Mild right ventricular dilatation. Right ventricular systolic pressure within normal limits. Right Atrium Normal right atrial size. Left Atrium Moderately increased left atrial diameter. Mildly increased left atrial volume. Mildly increased left atrial area. Mitral Valve Structurally normal mitral valve. Mild mitral regurgitation. No mitral stenosis. Aortic Valve Trileaflet aortic valve. No aortic stenosis. No aortic regurgitation. Tricuspid Valve Structurally normal tricuspid valve. Trace tricuspid regurgitation. No tricuspid stenosis. Pulmonic Valve Structurally normal pulmonic valve. Trace pulmonic regurgitation. No pulmonic stenosis. Pericardium No pericardial or pleural effusion. Aorta Normal size aortic root and proximal ascending aorta. CONCLUSIONS Normal biventricular systolic function Mild left ventricular hypertrophy Mild RV enlargement Normal pulmonary artery systolic pressure No significant valvular abnormality No pericardial effusion Previewed by: Dr. Otoniel Cantu MD (Electronically Signed) Final Date: 19 January 2024 10:55
--- NOTE | 2024-01-19 12:08 | P.PN ---
Subjective Progress Note Date: 01/19/24 Hospital Course: 53-year-old male with history of alcohol dependence, alcoholic cirrhosis, heart failure?, BPH, hypertension, opioid use disorder presenting with alcohol intoxication as well as right leg edema and erythema. On arrival, vital signs were within normal limits, WBC 11.4, platelet 125, creatinine 0.55, total bili 2.1, AST 214, ALT 74, ALP 160, serum alcohol 327. EKG showed sinus rhythm. Chest x-ray showed interstitial opacities. 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 Echocardiogram showed normal biventricular systolic function, no pericardial effusion. Patient admitted for hypervolemia, right lower extremity cellulitis as well as alcohol intoxication. Patient started on IV antibiotics, IV Lasix. Subjective: Seen and examined at bedside. No acute events overnight. Pertinent positives and negatives as discussed above, a complete review of systems was performed and all other systems are negative. Vitals Signs Reviewed. General: Nontoxic, no distress, appears at stated age Derm: Warm, dry, slight erythema to the medial aspect of right ankle Head: Atraumatic, normocephalic, symmetric Eyes: EOMI, no lid lag, anicteric sclera Mouth: No lip lesion, mucus membranes moist Cardiovascular: S1S2 reg, no murmur Lungs: Fine bibasilar rales, no accessory muscle use Abdominal: Soft, distended, nontender to palpation, no guarding, no appreciable organomegaly Ext: No gross muscle atrophy, 2+ pitting edema, no contractures Neuro: CN II-XI grossly intact, no focal neuro deficits Psych: Alert, oriented, appropriate affect Data Reviewed Today: Pertinent Labs: WBC 7.35, hemoglobin 11.4, platelet 97, creatinine 0.7, magnesium 2.2 Imaging: Echocardiogram report reviewed showed normal biventricular systolic function, no pericardial effusion. Assessment and Plan: Active: Alcohol intoxication Alcohol dependence, impending alcohol withdrawal -P.o. and IV Ativan as needed per CIWA scores -Thiamine 100 mg daily -Telemetry Hypervolemia Alcoholic cirrhosis Suspected acute diastolic heart failure exacerbation -Continue IV Lasix 40 every 12 hours, monitor electrolytes -Intake and output -Daily weights Right lower extremity cellulitis -Blood cultures pending -Continue ceftriaxone 2 g IV every 24 hours -Likely switch to oral Keflex tomorrow Chronic: Hypertension Opiate use disorder GERD DVT ppx: Lovenox Code status: Full code Anticipated discharge place: Pending clinical course Anticipated discharge time: Pending clinical course Objective - Vital Signs Vital signs: Vital Signs Temp 97.8 F 01/19/24 07:39 Pulse 85 01/19/24 11:46 Resp 17 01/19/24 11:46 BP 121/71 01/19/24 09:42 Pulse Ox 96 01/19/24 09:42 FiO2 Intake & Output 01/18/24 01/19/24 01/19/24 18:59 06:59 18:59 Output Total 700 1800 Balance -700 -1800 Weight 113.398 kg Output: Urine 700 1800 Other: # Voids 2 - Labs CBC & Chem 7: 01/19/24 06:17 01/19/24 06:17 Labs: Abnormal Lab Results - Last 24 Hours (Table) 01/18/24 01/18/24 01/18/24 Range/Units 18:47 18:47 18:47 WBC 11.4 H (3.8-10.6) k/uL RBC 3.69 L (4.30-5.90) m/uL Hgb 12.5 L (13.0-17.5) gm/dL Hct 36.7 L (39.0-53.0) % MCV (80.0-97.0) FL MCH (27.0-32.0) pg RDW (11.5-14.5) % Plt Count 125 L (150-450) k/uL MPV (9.5-12.2) FL Neutrophils # 8.5 H (1.3-7.7) k/uL PT 14.1 H (10.0-12.5) sec INR 1.3 H (<1.2) APTT 32.6 H (22.0-30.0) sec Anion Gap (4.00-12.00) mmol/L BUN 5 L (9-20) mg/dL Creatinine 0.55 L (0.66-1.25) mg/dL BUN/Creatinine Ratio (12.00-20.00) Ratio Glucose 119 H (74-99) mg/dL POC Glucose (mg/dL) (70-110) mg/dL Calcium (8.7-10.3) mg/dL Phosphorus 4.7 H (2.5-4.5) mg/dL Total Bilirubin 2.1 H (0.2-1.3) mg/dL AST 214 H (17-59) U/L ALT 74 H (4-49) U/L Alkaline Phosphatase 160 H (38-126) U/L Ammonia (<30) umol/L Total Protein 8.8 H (6.3-8.2) g/dL Albumin (3.8-4.9) g/dL Globulin (1.6-3.3) g/dL Albumin/Globulin Ratio (1.60-3.17) Ratio Vitamin B12 (200.0-944.0) pg/mL Serum Alcohol 327 H* mg/dL 01/19/24 01/19/24 01/19/24 Range/Units 06:17 06:17 06:17 WBC (3.8-10.6) k/uL RBC 3.40 L (4.30-5.90) m/uL Hgb 11.4 L (13.0-17.5) gm/dL Hct 33.6 L (39.0-53.0) % MCV 98.8 H (80.0-97.0) FL MCH 33.5 H (27.0-32.0) pg RDW 15.0 H (11.5-14.5) % Plt Count 97 L (150-450) k/uL MPV 9.2 L (9.5-12.2) FL Neutrophils # (1.3-7.7) k/uL PT (10.0-12.5) sec INR (<1.2) APTT (22.0-30.0) sec Anion Gap 15.50 H (4.00-12.00) mmol/L BUN 5.8 L (9-20) mg/dL Creatinine (0.66-1.25) mg/dL BUN/Creatinine Ratio 8.29 L (12.00-20.00) Ratio Glucose 115 H (74-99) mg/dL POC Glucose (mg/dL) (70-110) mg/dL Calcium 8.4 L (8.7-10.3) mg/dL Phosphorus (2.5-4.5) mg/dL Total Bilirubin 1.6 H (0.2-1.3) mg/dL AST 166 H (17-59) U/L ALT 62 H (4-49) U/L Alkaline Phosphatase 139 H (38-126) U/L Ammonia 65 H (<30) umol/L Total Protein (6.3-8.2) g/dL Albumin 3.1 L (3.8-4.9) g/dL Globulin 4.6 H (1.6-3.3) g/dL Albumin/Globulin Ratio 0.67 L (1.60-3.17) Ratio Vitamin B12 1572.0 H (200.0-944.0) pg/mL Serum Alcohol mg/dL 01/19/24 Range/Units 07:32 WBC (3.8-10.6) k/uL RBC (4.30-5.90) m/uL Hgb (13.0-17.5) gm/dL Hct (39.0-53.0) % MCV (80.0-97.0) FL MCH (27.0-32.0) pg RDW (11.5-14.5) % Plt Count (150-450) k/uL MPV (9.5-12.2) FL Neutrophils # (1.3-7.7) k/uL PT (10.0-12.5) sec INR (<1.2) APTT (22.0-30.0) sec Anion Gap (4.00-12.00) mmol/L BUN (9-20) mg/dL Creatinine (0.66-1.25) mg/dL BUN/Creatinine Ratio (12.00-20.00) Ratio Glucose (74-99) mg/dL POC Glucose (mg/dL) 112 H (70-110) mg/dL Calcium (8.7-10.3) mg/dL Phosphorus (2.5-4.5) mg/dL Total Bilirubin (0.2-1.3) mg/dL AST (17-59) U/L ALT (4-49) U/L Alkaline Phosphatase (38-126) U/L Ammonia (<30) umol/L Total Protein (6.3-8.2) g/dL Albumin (3.8-4.9) g/dL Globulin (1.6-3.3) g/dL Albumin/Globulin Ratio (1.60-3.17) Ratio Vitamin B12 (200.0-944.0) pg/mL Serum Alcohol mg/dL
[2024-01-19 12:31] LABS: Glucose,Whole Blood 137 mg/dL (70-110)
[2024-01-19] MEDS: traMADol 50 MG TAB PO PRN (12:35)
[2024-01-19 18:48] LABS: Glucose,Whole Blood 167 mg/dL (70-110)
[2024-01-19] MEDS: NON FORMULARY DRUG (Buprenorphine/Naloxone 8mg/2mg 1 EACH Film) SUBLINGUAL SCH (19:28)
[2024-01-19 21:43] LABS: Glucose,Whole Blood 190 mg/dL (70-110)
[2024-01-20 07:07] LABS: Glucose,Whole Blood 144 mg/dL (70-110)
--- NOTE | 2024-01-20 08:28 | P.CONS ---
History of Present Illness - Reason for Consult Consult date: 01/19/24 Cellulitis of the right lower extremity Requesting physician: Lizy Suresh - Chief Complaint Right leg swelling redness x days - History of Present Illness Patient is a 53-year-old male with a past medical history difficult for COPD hypertension heart failure with cirrhosis of liver secondary alcoholism patient is presenting to the hospital for evaluation of increasing swelling and redness to the right lower extremity that apparently has been getting worse over the last 2 weeks patient denies any history of any trauma has been complaining of mostly diffuse swelling redness to the right leg did have some dull aching pain moderate intensity without any radiation currently do not have any open wound or any drainage did have some stable denies high-grade fever on presentation to the hospital the patient was afebrile and no fever have been called subsequently patient was not tachycardic hypotensive or hypoxic and no need for supplemental oxygen patient did have white count of 11.4 with a left shift creatinine 0.55 liver isms are elevated serum alcohol is 327 patient did have a chest x-ray cardiomegaly with mild pulm vascular congestion he also have a CT of abdominal pelvis cirrhotic liver atelectasis of the lung base no significant ascites enlarged reactive appearing inguinal lymph nodes patient has been started on Rocephin infectious he was consulted for further management of antibiotic therapy Review of Systems Positive point and negatives has been mentioned in the HPI, complete review of systems was performed and all other systems are negative Past Medical History Past Medical History: Heart Failure, COPD, Hypertension, Liver Disease Additional Past Medical History / Comment(s): cirrhosis, alcoholism, ascites Additional Past Surgical History / Comment(s): L Lung removed Smoking Status: Never smoker Past Alcohol Use History: Abuse, Heavy Past Drug Use History: None Reported Medications and Allergies Home Medications Medication Instructions Recorded Confirmed Type Albuterol Inhaler [Ventolin Hfa 1 puff INHALATION RT-Q4H PRN 12/31/23 01/18/24 History Inhaler] Buprenorphine/Naloxone 8Mg/2Mg 0.5 film SL DAILY 12/31/23 01/18/24 History [Suboxone 8-2Mg Film] Buprenorphine/Naloxone 8Mg/2Mg 0.5 film SL DAILY PRN 12/31/23 01/18/24 History [Suboxone 8-2Mg Film] FLUoxetine HCL [PROzac] 10 mg PO DAILY 12/31/23 01/18/24 History Famotidine 20 mg PO HS PRN 12/31/23 01/18/24 History Folic Acid 1 mg PO DAILY 12/31/23 01/18/24 History Furosemide [Lasix] 40 mg PO DAILY 12/31/23 01/18/24 History Gabapentin [Neurontin] 600 mg PO BID 12/31/23 01/18/24 History Ibuprofen [Motrin] 600 mg PO Q6H PRN 12/31/23 01/18/24 History LORazepam 0.5 mg PO TID 12/31/23 01/18/24 History Lactulose [Constulose] 20 gm PO TID PRN 12/31/23 01/18/24 History Potassium Chloride ER [K-Dur 20] 20 meq PO DAILY 12/31/23 01/18/24 History SILVER sulfADIAZINE CREAM 1 applic TOPICAL DAILY 12/31/23 01/18/24 History [Silvadene Cream] Tamsulosin HCl [Flomax] 0.4 mg PO DAILY 12/31/23 01/18/24 History amLODIPine [Norvasc] 5 mg PO DAILY 12/31/23 01/18/24 History traMADol HCL 50 mg PO TID PRN 01/18/24 01/18/24 History Allergies Allergy/AdvReac Type Severity Reaction Status Date / Time chlordiazepoxide Allergy Hallucinati Verified 01/18/24 20:38 [From Librium] ons lisinopril Allergy Anaphylaxis Verified 01/18/24 20:38 Physical Exam Vitals: Vital Signs Temp Pulse Resp BP Pulse Ox 01/19/24 09:42 93 20 121/71 96 01/19/24 08:34 86 16 138/79 94 L 01/19/24 07:39 97.8 F 92 17 127/74 94 L 01/19/24 07:36 95 01/19/24 06:00 85 20 130/78 96 01/19/24 02:00 86 20 114/60 96 01/19/24 00:51 97.9 F 79 18 130/74 95 01/18/24 22:48 80 18 139/86 93 L 01/18/24 20:06 97.9 F 79 19 132/72 96 01/18/24 19:06 80 18 131/77 95 01/18/24 17:58 98.2 F 76 17 141/78 95 Intake and Output 01/18/24 01/19/24 01/19/24 22:59 06:59 14:59 Output Total 700 1800 Balance -700 -1800 Output: Urine 700 1800 Other: # Voids 2 Weight 113.398 kg GENERAL DESCRIPTION: Middle-aged male lying in bed, no distress. No tachypnea or accessory muscle of respiration use. HEENT: Shows Pallor , no scleral icterus. Oral mucous membrane is dry. No pharyngeal erythema or thrush NECK: Trachea central, no thyromegaly. LUNGS: Unlabored breathing. Decreased breath sound the base HEART: S1, S2, regular rate and rhythm. No loud murmur ABDOMEN: Soft, no tenderness EXTREMITIES: Diffuse swelling redness of the right lower extremity which is warm and tender to touch SKIN: No rash, no masses palpable. NEUROLOGICAL: The patient is awake, alert, oriented x3, mood and affect normal. Results CBC & Chem 7: 01/19/24 06:17 01/19/24 06:17 Labs: Abnormal Lab Results - Last 24 Hours (Table) 01/18/24 01/18/24 01/18/24 Range/Units 18:47 18:47 18:47 WBC 11.4 H (3.8-10.6) k/uL RBC 3.69 L (4.30-5.90) m/uL Hgb 12.5 L (13.0-17.5) gm/dL Hct 36.7 L (39.0-53.0) % MCV (80.0-97.0) FL MCH (27.0-32.0) pg RDW (11.5-14.5) % Plt Count 125 L (150-450) k/uL MPV (9.5-12.2) FL Neutrophils # 8.5 H (1.3-7.7) k/uL PT 14.1 H (10.0-12.5) sec INR 1.3 H (<1.2) APTT 32.6 H (22.0-30.0) sec Anion Gap (4.00-12.00) mmol/L BUN 5 L (9-20) mg/dL Creatinine 0.55 L (0.66-1.25) mg/dL BUN/Creatinine Ratio (12.00-20.00) Ratio Glucose 119 H (74-99) mg/dL POC Glucose (mg/dL) (70-110) mg/dL Calcium (8.7-10.3) mg/dL Phosphorus 4.7 H (2.5-4.5) mg/dL Total Bilirubin 2.1 H (0.2-1.3) mg/dL AST 214 H (17-59) U/L ALT 74 H (4-49) U/L Alkaline Phosphatase 160 H (38-126) U/L Ammonia (<30) umol/L Total Protein 8.8 H (6.3-8.2) g/dL Albumin (3.8-4.9) g/dL Globulin (1.6-3.3) g/dL Albumin/Globulin Ratio (1.60-3.17) Ratio Vitamin B12 (200.0-944.0) pg/mL Serum Alcohol 327 H* mg/dL 01/19/24 01/19/24 01/19/24 Range/Units 06:17 06:17 06:17 WBC (3.8-10.6) k/uL RBC 3.40 L (4.30-5.90) m/uL Hgb 11.4 L (13.0-17.5) gm/dL Hct 33.6 L (39.0-53.0) % MCV 98.8 H (80.0-97.0) FL MCH 33.5 H (27.0-32.0) pg RDW 15.0 H (11.5-14.5) % Plt Count 97 L (150-450) k/uL MPV 9.2 L (9.5-12.2) FL Neutrophils # (1.3-7.7) k/uL PT (10.0-12.5) sec INR (<1.2) APTT (22.0-30.0) sec Anion Gap 15.50 H (4.00-12.00) mmol/L BUN 5.8 L (9-20) mg/dL Creatinine (0.66-1.25) mg/dL BUN/Creatinine Ratio 8.29 L (12.00-20.00) Ratio Glucose 115 H (74-99) mg/dL POC Glucose (mg/dL) (70-110) mg/dL Calcium 8.4 L (8.7-10.3) mg/dL Phosphorus (2.5-4.5) mg/dL Total Bilirubin 1.6 H (0.2-1.3) mg/dL AST 166 H (17-59) U/L ALT 62 H (4-49) U/L Alkaline Phosphatase 139 H (38-126) U/L Ammonia 65 H (<30) umol/L Total Protein (6.3-8.2) g/dL Albumin 3.1 L (3.8-4.9) g/dL Globulin 4.6 H (1.6-3.3) g/dL Albumin/Globulin Ratio 0.67 L (1.60-3.17) Ratio Vitamin B12 1572.0 H (200.0-944.0) pg/mL Serum Alcohol mg/dL 01/19/24 Range/Units 07:32 WBC (3.8-10.6) k/uL RBC (4.30-5.90) m/uL Hgb (13.0-17.5) gm/dL Hct (39.0-53.0) % MCV (80.0-97.0) FL MCH (27.0-32.0) pg RDW (11.5-14.5) % Plt Count (150-450) k/uL MPV (9.5-12.2) FL Neutrophils # (1.3-7.7) k/uL PT (10.0-12.5) sec INR (<1.2) APTT (22.0-30.0) sec Anion Gap (4.00-12.00) mmol/L BUN (9-20) mg/dL Creatinine (0.66-1.25) mg/dL BUN/Creatinine Ratio (12.00-20.00) Ratio Glucose (74-99) mg/dL POC Glucose (mg/dL) 112 H (70-110) mg/dL Calcium (8.7-10.3) mg/dL Phosphorus (2.5-4.5) mg/dL Total Bilirubin (0.2-1.3) mg/dL AST (17-59) U/L ALT (4-49) U/L Alkaline Phosphatase (38-126) U/L Ammonia (<30) umol/L Total Protein (6.3-8.2) g/dL Albumin (3.8-4.9) g/dL Globulin (1.6-3.3) g/dL Albumin/Globulin Ratio (1.60-3.17) Ratio Vitamin B12 (200.0-944.0) pg/mL Serum Alcohol mg/dL Assessment and Plan (1) Cellulitis of right leg Current Visit: Yes Status: Acute Code(s): L03.115 - CELLULITIS OF RIGHT LOWER LIMB SNOMED Code(s): 46430839783064326 (2) Leukocytosis Current Visit: Yes Status: Acute Code(s): D72.829 - ELEVATED WHITE BLOOD CELL COUNT, UNSPECIFIED SNOMED Code(s): 483916201 Plan: 1patient presented to hospital with increasing pain and swelling to the right lower extremity concerning for right lower extremity cellulitis likely from gram-positive skin hailee in this patient who did have diffuse swelling redness and evidence of fluid overload likely streptococcal cellulitis. 2discontinue Rocephin. 3we will start the patient cefazolin 2 g every 8 hours. 4will benefit from a Dario wrap compression to get some of the swelling down. We will follow on clinical condition and cultures to further adjust medication if needed Thank you for this consultation we will follow the patient along with you Dictation was produced using [employer] dictation software. please excuse any grammatical, word or spelling errors. Time with Patient: Greater than 30
[2024-01-20] MEDS: LORazepam 1 MG TAB PO PRN (09:28)
[2024-01-20] MEDS: MORPHINE SULFATE 2 MG/ML SYRINGE IV PRN (12:18)
--- NOTE | 2024-01-20 12:18 | P.PN ---
Subjective Progress Note Date: 01/20/24 Hospital Course: 53-year-old male with history of alcohol dependence, alcoholic cirrhosis, heart failure?, BPH, hypertension, opioid use disorder presenting with alcohol intoxication as well as right leg edema and erythema. On arrival, vital signs were within normal limits, WBC 11.4, platelet 125, creatinine 0.55, total bili 2.1, AST 214, ALT 74, ALP 160, serum alcohol 327. EKG showed sinus rhythm. Chest x-ray showed interstitial opacities. 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 Echocardiogram showed normal biventricular systolic function, no pericardial effusion. Patient admitted for hypervolemia, right lower extremity cellulitis as well as alcohol intoxication. Patient started on IV antibiotics, IV Lasix. Subjective: Seen and examined at bedside. No acute events overnight. Pertinent positives and negatives as discussed above, a complete review of systems was performed and all other systems are negative. Vitals Signs Reviewed. General: Nontoxic, no distress, appears at stated age Derm: Warm, dry, slight erythema to the medial aspect of right ankle Head: Atraumatic, normocephalic, symmetric Eyes: EOMI, no lid lag, anicteric sclera Mouth: No lip lesion, mucus membranes moist Cardiovascular: S1S2 reg, no murmur Lungs: Fine bibasilar rales, no accessory muscle use Abdominal: Soft, distended, nontender to palpation, no guarding, no appreciable organomegaly Ext: No gross muscle atrophy, 2+ pitting edema, no contractures Neuro: CN II-XI grossly intact, no focal neuro deficits Psych: Alert, oriented, appropriate affect Data Reviewed Today: Pertinent Labs: Blood glucose range between [id number], BMP and magnesium pending, will be reviewed when available Imaging: No new imaging Assessment and Plan: Active: Hypervolemia Alcoholic cirrhosis Suspected acute diastolic heart failure exacerbation -Continue IV Lasix 40 every 12 hours, monitor electrolytes -Intake and output -Daily weights Right lower extremity cellulitis -Likely has component of chronic venous stasis dermatitis as well, which is present bilaterally -Blood cultures pending -Patient switched to IV cefazolin 2 g every 8 hours, ID following -Likely switch to oral Keflex at the time of discharge Alcohol intoxication Alcohol dependence, impending alcohol withdrawal -P.o. and IV Ativan as needed per CIWA scores -Thiamine 100 mg daily -Telemetry Chronic: Hypertension Opiate use disorder GERD DVT ppx: Lovenox Code status: Full code Anticipated discharge place: Pending clinical course Anticipated discharge time: Pending clinical course Objective - Vital Signs Vital signs: Vital Signs Temp 99.0 F 01/20/24 11:20 Pulse 98 01/20/24 11:20 Resp 18 01/20/24 11:20 BP 135/77 01/20/24 11:20 Pulse Ox 94 L 01/20/24 11:20 FiO2 Intake & Output 01/19/24 01/20/24 01/20/24 18:59 06:59 18:59 Output Total 1800 Balance -1800 Output: Urine 1800 - Labs CBC & Chem 7: 01/19/24 06:17 01/19/24 06:17 Labs: Abnormal Lab Results - Last 24 Hours (Table) 01/19/24 01/19/24 01/19/24 Range/Units 06:17 12:30 18:46 POC Glucose (mg/dL) 137 H 167 H (70-110) mg/dL RBC Folate 802 H (280 - 791) ng/mL 01/19/24 01/20/24 Range/Units 21:41 07:05 POC Glucose (mg/dL) 190 H 144 H (70-110) mg/dL RBC Folate (280 - 791) ng/mL
[2024-01-20 12:26] LABS: Glucose,Whole Blood 132 mg/dL (70-110)
[2024-01-20 12:58] LABS: African American GFR (CKD) >90 (>60 ml/min/1.73 sqM); Anion Gap 4 mmol/L; Blood Urea Nitrogen 8 mg/dL (9-20); Calcium 8.1 mg/dL (8.4-10.2); Carbon Dioxide 32 mmol/L (22-30); Chloride 100 mmol/L (98-107); Glucose 138 mg/dL (74-99); Magnesium 1.5 mg/dL (1.6-2.3); Non-African American GFR(CKD) >90 (>60 ml/min/1.73 sqM); Potassium 3.2 mmol/L (3.5-5.1); Sodium 136 mmol/L (137-145)
[2024-01-20] MEDS ORDERED: NYSTAT-TRIAMCIN 100,000-0.1 UNIT/GM-% CREAM 30 GM TUBE TOPICAL SCH (15:30)
[2024-01-20] MEDS: NYSTATIN 100,000UNIT/GM CREAM 30 GM TUBE TOPICAL SCH (16:51)
[2024-01-20] MEDS: TRIAMCINOLONE 0.1% CREAM 80 GM TUBE TOPICAL SCH (16:51)
[2024-01-20 17:10] LABS: Glucose,Whole Blood 137 mg/dL (70-110)
[2024-01-20] MEDS: POTASSIUM CHLORIDE ER 20 MEQ TAB.ER PO STA (18:10)
[2024-01-20] MEDS: MAGNESIUM SULFATE-D5W PMX 1 GM in DEXTROSE/WATER 1 100ML.BAG IVPB SCH (18:11)
[2024-01-20 19:53] LABS: Glucose,Whole Blood 163 mg/dL (70-110)
--- NOTE | 2024-01-20 23:20 | P.PN ---
Subjective Progress Note Date: 01/20/24 Principal diagnosis: Reason for follow-up is right lower extremity cellulitis Patient is a 53-year-old male with a past medical history difficult for COPD hypertension heart failure with cirrhosis of liver secondary alcoholism patient is presenting to the hospital for evaluation of increasing swelling and redness to the right lower extremity and has been diagnosed with a cellulitis. On today's evaluation that is 01/20/2024, Patient is afebrile patient is currently on room air and denies having any shortness of breath, the patient denies any chest pain or cough, the patient denies any nausea vomiting did not have any abdominal pain and no diarrhea complaining of some discomfort to the right lower extremity but no worsening. Patient did have creatinine of 0.61 white count 7.35 as of yesterday blood cultures are pending Objective - Vital Signs Vital signs: Vital Signs Temp 99.1 F 01/20/24 07:22 Pulse 102 H 01/20/24 07:22 Resp 18 01/20/24 07:22 BP 145/92 01/20/24 07:22 Pulse Ox 99 01/20/24 07:22 FiO2 Intake & Output 01/19/24 01/20/24 01/20/24 18:59 06:59 18:59 Output Total 1800 Balance -1800 Output: Urine 1800 - Exam GENERAL DESCRIPTION: Middle-age male lying in bed in no distress RESPIRATORY SYSTEM: Unlabored breathing , decreased breath sounds at bases HEART: S1 S2 regular rate and rhythm , ABDOMEN: Soft , no tenderness EXTREMITIES: Right lower extremity with diffuse swelling redness slightly decreased - Labs CBC & Chem 7: 01/19/24 06:17 01/20/24 12:21 Labs: Abnormal Lab Results - Last 24 Hours (Table) 01/19/24 01/19/24 01/19/24 Range/Units 12:30 18:46 21:41 POC Glucose (mg/dL) 137 H 167 H 190 H (70-110) mg/dL 01/20/24 Range/Units 07:05 POC Glucose (mg/dL) 144 H (70-110) mg/dL Assessment and Plan (1) Cellulitis of right leg Current Visit: Yes Status: Acute Code(s): L03.115 - CELLULITIS OF RIGHT LOWER LIMB SNOMED Code(s): 33269530081405213 (2) Leukocytosis Current Visit: Yes Status: Acute Code(s): D72.829 - ELEVATED WHITE BLOOD CELL COUNT, UNSPECIFIED SNOMED Code(s): 983523530 Plan: 1patient presented to hospital with increasing pain and swelling to the right lower extremity concerning for right lower extremity cellulitis likely from gram-positive skin hailee in this patient who did have diffuse swelling redness and evidence of fluid overload likely streptococcal cellulitis. 2we will apply Mycolog cream to the area of erythema of the right leg followed by Dario wrap discussed with the nursing staff 3patient to continue cefazolin 2 g every 8 hours. And monitor clinical course closely Dictation was produced using [employer] dictation software. please excuse any grammatical, word or spelling errors. Time with Patient: Less than 30
[2024-01-21 07:22] LABS: Glucose,Whole Blood 155 mg/dL (70-110)
[2024-01-21 08:54] LABS: Magnesium 1.8 mg/dL (1.5-2.4)
[2024-01-21 09:24] LABS: BUN/Creat Ratio 12.57 Ratio (12.00-20.00); Blood Urea Nitrogen 8.8 mg/dL (9.0-27.0); Calcium 8.3 mg/dL (8.7-10.3); Carbon Dioxide 26.8 mmol/L (21.6-31.8); Chloride 97 mmol/L (96-109); Glucose 152 mg/dL (70-110); Potassium 3.6 mmol/L (3.5-5.5); Sodium 135 mmol/L (135-145)
[2024-01-21 12:29] LABS: Glucose,Whole Blood 134 mg/dL (70-110)
--- NOTE | 2024-01-21 13:07 | P.PN ---
Subjective Progress Note Date: 01/21/24 Principal diagnosis: Reason for follow-up is right lower extremity cellulitis Patient is a 53-year-old male with a past medical history difficult for COPD hypertension heart failure with cirrhosis of liver secondary alcoholism patient is presenting to the hospital for evaluation of increasing swelling and redness to the right lower extremity and has been diagnosed with a cellulitis. On today's evaluation that is 01/21/2024, patient has been afebrile, patient is breathing comfortably and is currently on room air, patient denies having any significant cough no chest pain, patient denies nausea vomiting or diarrhea and no abdominal pain pain and swelling to the right lower extremity has decreased in intensity. Patient did have creatinine 0.7 blood cultures are pending Objective - Vital Signs Vital signs: Vital Signs Temp 98 F 01/21/24 07:32 Pulse 77 01/21/24 07:32 Resp 17 01/21/24 07:32 BP 143/81 01/21/24 07:32 Pulse Ox 93 L 01/21/24 07:32 FiO2 Intake & Output 01/20/24 01/21/24 01/21/24 18:59 06:59 18:59 Intake Total 560 Output Total 1000 700 Balance -440 -700 Weight 113.398 kg 111.4 kg Intake: Intake, IV Titration 200 Amount Magnesium Sulfate-D5w Pmx 100 1 gm In Dextrose/Water 1 100ml.bag @ 100 mls/hr IVPB Q1H JOANNA Rx#: [id number] ceFAZolin 2 gm In Sodium 100 Chloride 0.9% 50 ml @ 100 mls/hr IVPB Q8H JOANNA Rx#: [id number] Oral 360 Output: Urine 1000 700 Other: # Voids 400 - Exam GENERAL DESCRIPTION: Middle-age male lying in bed in no distress RESPIRATORY SYSTEM: Unlabored breathing , decreased breath sounds at bases HEART: S1 S2 regular rate and rhythm , ABDOMEN: Soft , no tenderness EXTREMITIES: Right lower extremity with diffuse swelling redness slightly decreased - Labs CBC & Chem 7: 01/19/24 06:17 01/21/24 05:36 Labs: Abnormal Lab Results - Last 24 Hours (Table) 01/20/24 01/20/24 01/21/24 Range/Units 17:09 19:44 05:36 BUN 8.8 L (9.0-27.0) mg/dL Glucose 152 H (70-110) mg/dL POC Glucose (mg/dL) 137 H 163 H (70-110) mg/dL Calcium 8.3 L (8.7-10.3) mg/dL 01/21/24 01/21/24 Range/Units 07:05 12:23 BUN (9.0-27.0) mg/dL Glucose (70-110) mg/dL POC Glucose (mg/dL) 155 H 134 H (70-110) mg/dL Calcium (8.7-10.3) mg/dL Microbiology - Last 24 Hours (Table) 01/19/24 00:28 Blood Culture - Preliminary Blood Assessment and Plan (1) Cellulitis of right leg Current Visit: Yes Status: Acute Code(s): L03.115 - CELLULITIS OF RIGHT LOWER LIMB SNOMED Code(s): 55910821484825603 (2) Leukocytosis Current Visit: Yes Status: Acute Code(s): D72.829 - ELEVATED WHITE BLOOD CELL COUNT, UNSPECIFIED SNOMED Code(s): 640467749 Plan: 1patient presented to hospital with increasing pain and swelling to the right lower extremity concerning for right lower extremity cellulitis likely from gram-positive skin hailee in this patient who did have diffuse swelling redness and evidence of fluid overload likely streptococcal cellulitis. 2continue with Mycolog cream to the area of erythema of the right leg followed by Dario wrap discussed with the nursing staff 3patient did have improvement to the lower extremity cellulitis continue with the cefazolin while inpatient finishing therapy with oral Keflex Dictation was produced using [employer] dictation software. please excuse any grammatical, word or spelling errors. Time with Patient: Less than 30
--- NOTE | 2024-01-21 13:39 | P.PN ---
Subjective Progress Note Date: 01/21/24 No new complaints. Reports swelling is going down in his legs. Cellulitis improving. Gen: In NAD, non-toxic HEENT: normocephalic, atraumatic, hearing acuity is intant, mucous membranes moist CVS: perfusing all extremities well, bilateral 2+ pitting edema, Respiratory: symmetric chest expansion, no accessory muscle use, GI: soft, NTTP, ND, : no suprapubic tenderness, no CVA tenderness MSK/Derm: no rashes, cyanosis, erythema of the right leg Neuro: CN II-XII intact, no motor weakness, Psych: cooperative, euthymic mood, judgment and insight is intact Hospital Course: 53-year-old male with history of alcohol dependence, alcoholic cirrhosis, heart failure?, BPH, hypertension, opioid use disorder presenting with alcohol intoxication as well as right leg edema and erythema. On arrival, vital signs were within normal limits, WBC 11.4, platelet 125, creatinine 0.55, total bili 2.1, AST 214, ALT 74, ALP 160, serum alcohol 327. EKG showed sinus rhythm. Chest x-ray showed interstitial opacities. 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 Echocardiogram showed normal biventricular systolic function, no pericardial effusion. Patient admitted for hypervolemia, right lower extremity cellulitis as well as alcohol intoxication. Patient started on IV antibiotics, IV Lasix. Assessment and Plan: Active: Hypervolemia Alcoholic cirrhosis Suspected acute diastolic heart failure exacerbation -Continue IV Lasix 40 every 12 hours, monitor electrolytes -Intake and output -Daily weights Right lower extremity cellulitis -Likely has component of chronic venous stasis dermatitis as well, which is present bilaterally -Blood cultures pending -Patient switched to IV cefazolin 2 g every 8 hours, ID following -Likely switch to oral Keflex at the time of discharge Alcohol intoxication Alcohol dependence, impending alcohol withdrawal -P.o. and IV Ativan as needed per CIWA scores -Thiamine 100 mg daily -Telemetry Chronic: Hypertension Opiate use disorder GERD DVT ppx: Lovenox Code status: Full code Anticipated discharge place: Pending clinical course Anticipated discharge time: Pending clinical course Objective - Vital Signs Vital signs: Vital Signs Temp 98 F 11/15/24 07:32 Pulse 77 01/21/24 07:32 Resp 17 01/21/24 07:32 BP 143/81 01/21/24 07:32 Pulse Ox 93 L 01/21/24 07:32 FiO2 Intake & Output 01/20/24 01/21/24 01/21/24 18:59 06:59 18:59 Intake Total 560 Output Total 1000 700 Balance -440 -700 Weight 113.398 kg 111.4 kg Intake: Intake, IV Titration 200 Amount Magnesium Sulfate-D5w Pmx 100 1 gm In Dextrose/Water 1 100ml.bag @ 100 mls/hr IVPB Q1H JOANNA Rx#: [id number] ceFAZolin 2 gm In Sodium 100 Chloride 0.9% 50 ml @ 100 mls/hr IVPB Q8H JOANNA Rx#: [id number] Oral 360 Output: Urine 1000 700 Other: # Voids 400 - Labs CBC & Chem 7: 01/19/24 06:17 01/21/24 05:36 Labs: Abnormal Lab Results - Last 24 Hours (Table) 01/20/24 01/20/24 01/21/24 Range/Units 17:09 19:44 05:36 BUN 8.8 L (9.0-27.0) mg/dL Glucose 152 H (70-110) mg/dL POC Glucose (mg/dL) 137 H 163 H (70-110) mg/dL Calcium 8.3 L (8.7-10.3) mg/dL 01/21/24 01/21/24 Range/Units 07:05 12:23 BUN (9.0-27.0) mg/dL Glucose (70-110) mg/dL POC Glucose (mg/dL) 155 H 134 H (70-110) mg/dL Calcium (8.7-10.3) mg/dL Microbiology - Last 24 Hours (Table) 01/19/24 00:28 Blood Culture - Preliminary Blood
[2024-01-21 17:17] LABS: Glucose,Whole Blood 141 mg/dL (70-110)
[2024-01-21 20:09] LABS: Glucose,Whole Blood 140 mg/dL (70-110)
[2024-01-21] MEDS: LACTULOSE 20 GM/30 ML CUP PO PRN (21:27)
[2024-01-22 02:00] VITALS: TEMP 98.7
[2024-01-22 07:39] LABS: Glucose,Whole Blood 105 mg/dL (70-110)
[2024-01-22 08:25] VITALS: BP 149/87; PULSE 91; RESP 18
[2024-01-22] MEDS: FLUoxetine HCL 10 MG CAP PO SCH (09:11)
[2024-01-22] MEDS: PANTOPRAZOLE 40 MG TABLET PO SCH (09:11)
[2024-01-22] MEDS: LORazepam 1 MG TAB PO PRN (09:24)
--- NOTE | 2024-01-22 12:00 | P.DS ---
Providers Date of admission: 01/18/24 20:44 Expected date of discharge: 01/22/24 Attending physician: Melquiades Gaona MD Consults: 01/18/24 23:49 Consult Physician Routine Consulting Provider: Luana Mckeon Consult Reason/Comments: Cellulitis right lower extremity Do you want consulting provider notified?: Yes, Notify in am Primary care physician: Suleman Liang Hospital Course: Discharge Diagnosis: Hypervolemia Alcoholic cirrhosis Right lower extremity cellulitis Hypokalemia Hypomagnesemia Alcohol intoxication Alcohol dependence, impending alcohol withdrawal Hypertension Opiate use disorder GERD Hospital Course: 53-year-old male with history of alcohol dependence, alcoholic cirrhosis, heart failure?, BPH, hypertension, opioid use disorder presenting with alcohol intoxication as well as right leg edema and erythema. On arrival, vital signs were within normal limits, WBC 11.4, platelet 125, creatinine 0.55, total bili 2.1, AST 214, ALT 74, ALP 160, serum alcohol 327. EKG showed sinus rhythm. Chest x-ray showed interstitial opacities. 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 Echocardiogram showed normal biventricular systolic function, no pericardial effusion. Patient admitted for hypervolemia, right lower extremity cellulitis as well as alcohol intoxication. Patient started on IV antibiotics, IV Lasix. He also consulted. Patient switches to oral Keflex at the time of discharge. Lasix increased to 40 twice daily oral. Follow-up outpatient with PCP and GI. Plan communicated with patient and significant other. Patient seen and examined at bedside. Vital signs reviewed and stable. General: Nontoxic, no distress, appears at stated age Derm: Warm, dry, slight erythema to the medial aspect of right ankle Head: Atraumatic, normocephalic, symmetric Eyes: EOMI, no lid lag, anicteric sclera Mouth: No lip lesion, mucus membranes moist Cardiovascular: S1S2 reg, no murmur Lungs: Fine bibasilar rales, no accessory muscle use Abdominal: Soft, distended, nontender to palpation, no guarding, no appreciable organomegaly Ext: No gross muscle atrophy, 2+ pitting edema, no contractures Neuro: CN II-XI grossly intact, no focal neuro deficits Psych: Alert, oriented, appropriate affect A total of 32 minutes of time were spent preparing this complex discharge summary. Patient was discharged on 01/22/2024 at 1157. Plan - Discharge Summary Discharge Rx Participant: Yes New Discharge Prescriptions: New Thiamine [Vitamin B-1] 100 mg PO DAILY #90 tab Cephalexin [Keflex] 500 mg PO Q6HR 7 Days #28 cap Continue Famotidine 20 mg PO HS PRN PRN Reason: Heartburn Lactulose [Constulose] 20 gm PO TID PRN PRN Reason: Constipation Folic Acid 1 mg PO DAILY traMADol HCL 50 mg PO TID PRN PRN Reason: Pain Buprenorphine/Naloxone 8Mg/2Mg [Suboxone 8-2Mg Film] 0.5 film SL DAILY PRN PRN Reason: Pain Buprenorphine/Naloxone 8Mg/2Mg [Suboxone 8-2Mg Film] 0.5 film SL DAILY SILVER sulfADIAZINE CREAM [Silvadene Cream] 1 applic TOPICAL DAILY Gabapentin [Neurontin] 600 mg PO BID FLUoxetine HCL [PROzac] 10 mg PO DAILY Albuterol Inhaler [Ventolin Hfa Inhaler] 1 puff INHALATION RT-Q4H PRN PRN Reason: Shortness Of Breath amLODIPine [Norvasc] 5 mg PO DAILY Tamsulosin HCl [Flomax] 0.4 mg PO DAILY Potassium Chloride ER [K-Dur 20] 20 meq PO DAILY Changed Furosemide [Lasix] 40 mg PO Q12HR #0 Discontinued LORazepam 0.5 mg PO TID Ibuprofen [Motrin] 600 mg PO Q6H PRN PRN Reason: Pain Discharge Medication List Albuterol Inhaler [Ventolin Hfa Inhaler] 1 puff INHALATION RT-Q4H PRN 12/31/23 [History] Buprenorphine/Naloxone 8Mg/2Mg [Suboxone 8-2Mg Film] 0.5 film SL DAILY 12/31/23 [History] Buprenorphine/Naloxone 8Mg/2Mg [Suboxone 8-2Mg Film] 0.5 film SL DAILY PRN 12/31/23 [History] FLUoxetine HCL [PROzac] 10 mg PO DAILY 12/31/23 [History] Famotidine 20 mg PO HS PRN 12/31/23 [History] Folic Acid 1 mg PO DAILY 12/31/23 [History] Gabapentin [Neurontin] 600 mg PO BID 12/31/23 [History] Lactulose [Constulose] 20 gm PO TID PRN 12/31/23 [History] Potassium Chloride ER [K-Dur 20] 20 meq PO DAILY 12/31/23 [History] SILVER sulfADIAZINE CREAM [Silvadene Cream] 1 applic TOPICAL DAILY 12/31/23 [History] Tamsulosin HCl [Flomax] 0.4 mg PO DAILY 12/31/23 [History] amLODIPine [Norvasc] 5 mg PO DAILY 12/31/23 [History] traMADol HCL 50 mg PO TID PRN 01/18/24 [History] Cephalexin [Keflex] 500 mg PO Q6HR 7 Days #28 cap 01/22/24 [Rx] Furosemide [Lasix] 40 mg PO Q12HR #0 01/22/24 [Rx] Thiamine [Vitamin B-1] 100 mg PO DAILY #90 tab 01/22/24 [Rx] Follow up Appointment(s)/Referral(s): Maria Hilario MD [STAFF PHYSICIAN] - 1 Week None,Stated [REFERRING] - 1-2 days Patient Instructions/Handouts: Cellulitis (ED), Alcohol Intoxication (DC), Abuse of Alcohol (DC) Activity/Diet/Wound Care/Special Instructions: Please see your PCP and make an appointment with GI. Discharge Disposition: HOME SELF-CARE
[2024-01-22 12:17] LABS: Glucose,Whole Blood 121 mg/dL (70-110)
--- NOTE | 2024-01-23 14:20 | P.PN ---
Subjective Progress Note Date: 01/22/24 Principal diagnosis: Reason for follow-up is right lower extremity cellulitis Patient is a 53-year-old male with a past medical history difficult for COPD hypertension heart failure with cirrhosis of liver secondary alcoholism patient is presenting to the hospital for evaluation of increasing swelling and redness to the right lower extremity and has been diagnosed with a cellulitis. On today's evaluation that is 01/22/2024, Patient is afebrile this morning patient denies having any chest pain shortness of breath or cough, the patient is currently on room air, patient denies any abdominal pain no diarrhea no nausea no vomiting pain and swelling to the right lower extremity has decreased in intensity. No new lab has been repeated today blood culture has been negative so far Objective - Vital Signs Vital signs: Vital Signs Temp 98.7 F 01/22/24 07:31 Pulse 91 01/22/24 07:31 Resp 18 01/22/24 07:31 BP 149/87 01/22/24 07:31 Pulse Ox 95 01/22/24 07:31 FiO2 Intake & Output 01/21/24 01/22/24 01/22/24 18:59 06:59 18:59 Intake Total 948 Output Total 1350 850 Balance -402 -850 Weight 110.1 kg Intake: Intake, IV Titration 50 Amount ceFAZolin 2 gm In Sodium 50 Chloride 0.9% 50 ml @ 100 mls/hr IVPB Q8H [facility] Rx#: [id number] Oral 898 Output: Urine 1350 850 Stool 0 Other: # Voids 2 - Exam GENERAL DESCRIPTION: Middle-age male lying in bed in no distress RESPIRATORY SYSTEM: Unlabored breathing , decreased breath sounds at bases HEART: S1 S2 regular rate and rhythm , ABDOMEN: Soft , no tenderness EXTREMITIES: Right lower extremity with diffuse swelling redness slightly decreased - Labs CBC & Chem 7: 01/19/24 06:17 01/21/24 05:36 Labs: Abnormal Lab Results - Last 24 Hours (Table) 01/21/24 01/21/24 01/21/24 Range/Units 12:23 17:12 20:06 POC Glucose (mg/dL) 134 H 141 H 140 H (70-110) mg/dL Microbiology - Last 24 Hours (Table) 01/19/24 00:28 Blood Culture - Preliminary Blood Assessment and Plan (1) Cellulitis of right leg Status: Acute Code(s): L03.115 - CELLULITIS OF RIGHT LOWER LIMB SNOMED Code(s): 39621363451399045 (2) Leukocytosis Status: Acute Code(s): D72.829 - ELEVATED WHITE BLOOD CELL COUNT, UNSPECIFIED SNOMED Code(s): 724658458 Plan: 1patient presented to hospital with increasing pain and swelling to the right lower extremity concerning for right lower extremity cellulitis likely from gram-positive skin hailee in this patient who did have diffuse swelling redness and evidence of fluid overload likely streptococcal cellulitis. 2continue with Mycolog cream to the area of erythema of the right leg followed by Dario wrap to keep the swelling down 3patient did have improvement to the lower extremity cellulitis he will be able to finish therapy with oral Keflex x 7 days on discharge Dictation was produced using [employer] dictation software. please excuse any grammatical, word or spelling errors. Time with Patient: Less than 30
--- NOTE | 2024-01-25 11:57 | CDI ---
Documentation Clarification Form Date: 01/25/2024 11:43:28 AM From: Sahara Joyce Phone: Admit Date: 01/18/2024 08:44:00 PM Patient Name: Chandan Noguera Visit Number: [id number] Discharge Date: 01/22/2024 02:02:00 PM ATTENTION: The Clinical Documentation Specialists (CDI) and [facility] Coding Staff appreciate your assistance in clarifying documentation. Please respond to the clarification below the line at the bottom and electronically sign. The CDI & [facility] Coding staff will review the response and follow-up if needed. Please note: Queries are made part of the Legal Health Record. If you have any questions, please contact the author of this message via ITS. Doctor/Provider: Melquiades Gaona Your patient has the documented diagnosis of unspecified CHF in PN on 01/19/2024 Additional information regarding the [type, acuity] of CHF is requested. History/Risk Factors: 3-year-old maleCOPD(not on oxygen at home), cirrhosis,heart failure,hypertension,alcohol use disorder, history of cellulitispresents with complaints of right leginfectionandswelling. Clinical Indicators: on PN 01/18-Suspectedacute diastolic heart failure exacerbation -Continue IV Lasix 40 every 12 hours, monitor electrolytes PN on 01/20 - Suspected acute diastolicheart failureexacerbation -Continue IV Lasix 40 VS/Pulse OX: ON 01/17 - Temperature 98.2 F 97.9 F Pulse Rate 76 80 79 Respiratory 17 18 19 [id number] 131/77 132/72 O2 Sat by Pulse 95 95 96 Echo transthoracic on 01/18 - Left ventricular ejection fraction is estimated at 55-60 %.Mildly increased septal wall thickness. Normal left ventricular systolic functionwith no obvious regional wall motionabnormalities. Chest X Ray: on 01/17 Cardiomegalyand mild pulmonary vascularcongestion. Correlate with BNP for congestive heart failure. Treatment: Continue IV Lasix 40 every 12 hours, monitor electrolytes In your professional opinion, can you please clarify the type of CHF if known? [ ] Acute Diastolic Heart Failure (preserved EF) [ ] Chronic Diastolic Heart Failure (preserved EF) [ ] Acute on Chronic Diastolic Heart Failure (preserved EF) [ ] Acute Systolic & Diastolic Heart Failure [ ] Chronic Systolic & Diastolic Heart Failure [ ] Acute on Chronic Heart Failure Systolic & Diastolic Heart Failure [ ] Other, please specify [ ] Unable to determine (Template Last Revised: April 2020) Unable to determine MTDD
== END 2024-01-22 14:02 | disposition home or self-care (01) | DRG 383 ==
LOC: EC 17:55 → 5NMEDONC 20:44
PROVIDERS: ADMIT Internal Medicine; ATTEND Internal Medicine
DX: L03.115 Cellulitis of right lower limb (principal); D64.9 Anemia, unspecified; F10.229 Alcohol dependence with intoxication, unspecified; I11.0 Hypertensive heart disease with heart failure; I50.9 Heart failure, unspecified; I87.2 Venous insufficiency (chronic) (peripheral); J44.9 Chronic obstructive pulmonary disease, unspecified; K70.30 Alcoholic cirrhosis of liver without ascites; M87.9 Osteonecrosis, unspecified; E87.6 Hypokalemia; E83.42 Hypomagnesemia; F10.239 Alcohol dependence with withdrawal, unspecified; F11.10 Opioid abuse, uncomplicated; K21.9 Gastro-esophageal reflux disease without esophagitis; N40.0 Benign prostatic hyperplasia without lower urinary tract symptoms; D72.829 Elevated white blood cell count, unspecified; Z88.8 Allergy status to other drugs, medicaments and biological substances
CPT/HCPCS: 36415; 71046; 74176; 80048; 80053; 80320; 82140; 82607; 82747; 83036; 83690; 83735; 83880; 84100; 84484; 85025; 85610; 85730; 87040; 93005; 93306; 94760; 96366; 96367; 96372; 96375; 96376; 99285

== ENCOUNTER 2024-07-10 16:40 | Emergency (ER) | payer OTHER ==
[2024-07-10 16:49] VITALS: TEMP 98.1
--- NOTE | 2024-07-10 17:24 | ED ---
General Adult HPI - General Chief complaint: Altered Mental Status Stated complaint: AMS Time Seen by Provider: 07/10/24 16:55 Source: patient, EMS, RN notes reviewed, old records reviewed Mode of arrival: EMS Limitations: altered mental status - History of Present Illness Initial comments: This is a 54-year-old male who presents to the emergency department altered. Patient's mother sent him in via EMS because for the last 3 days he has been confused and continues to get more confused. Mother states that he might of taken some of her meds as well. She does not know which ones or if he actually did patient is a renal dialysis patient and was last dialyzed on Wednesday. Patient also has liver disease secondary to chronic alcoholism. No one is with the patient to give any further history all of the history comes from EMS. - Related Data Home Medications Medication Instructions Recorded Confirmed Albuterol Inhaler [Ventolin Hfa 1 puff INHALATION RT-Q4H PRN 12/31/23 01/18/24 Inhaler] Buprenorphine/Naloxone 8Mg/2Mg 0.5 film SL DAILY 12/31/23 01/18/24 [Suboxone 8-2Mg Film] Buprenorphine/Naloxone 8Mg/2Mg 0.5 film SL DAILY PRN 12/31/23 01/18/24 [Suboxone 8-2Mg Film] FLUoxetine HCL [PROzac] 10 mg PO DAILY 12/31/23 01/18/24 Famotidine 20 mg PO HS PRN 12/31/23 01/18/24 Folic Acid 1 mg PO DAILY 12/31/23 01/18/24 Gabapentin [Neurontin] 600 mg PO BID 12/31/23 01/18/24 Lactulose [Constulose] 20 gm PO TID PRN 12/31/23 01/18/24 Potassium Chloride ER [K-Dur 20] 20 meq PO DAILY 12/31/23 01/18/24 SILVER sulfADIAZINE CREAM 1 applic TOPICAL DAILY 12/31/23 01/18/24 [Silvadene Cream] Tamsulosin HCl [Flomax] 0.4 mg PO DAILY 12/31/23 01/18/24 amLODIPine [Norvasc] 5 mg PO DAILY 12/31/23 01/18/24 traMADol HCL 50 mg PO TID PRN 01/18/24 01/18/24 Previous Rx's Medication Instructions Recorded Cephalexin [Keflex] 500 mg PO Q6HR 7 Days #28 cap 01/22/24 Furosemide [Lasix] 40 mg PO Q12HR #120 tab 01/22/24 Thiamine [Vitamin B-1] 100 mg PO DAILY #90 tab 01/22/24 Allergies Allergy/AdvReac Type Severity Reaction Status Date / Time chlordiazepoxide Allergy Hallucinati Verified 07/10/24 20:10 [From Librium] ons lisinopril Allergy Anaphylaxis Verified 07/10/24 20:10 Review of Systems ROS Statement: Those systems with pertinent positive or pertinent negative responses have been documented in the HPI. ROS Other: All systems not noted in ROS Statement are negative. Past Medical History Past Medical History: Heart Failure, COPD, Hypertension, Liver Disease Additional Past Medical History / Comment(s): cirrhosis, alcoholism, ascites History of Any Multi-Drug Resistant Organisms: None Reported Additional Past Surgical History / Comment(s): L Lung removed Past Anesthesia/Blood Transfusion Reactions: No Reported Reaction Past Psychological History: Depression Smoking Status: Never smoker Past Alcohol Use History: Abuse, Heavy Past Drug Use History: None Reported General Exam - General Exam Comments Initial Comments: GENERAL: Patient is well-developed and well-nourished. Patient is nontoxic and well- hydrated and is in no acute distress. ENT: Neck is soft and supple. No significant lymphadenopathy is noted. Oropharynx is clear. Moist mucous membranes. Neck has full range of motion without eliciting any pain. EYES: The sclera were anicteric and conjunctiva were pink and moist. Extraocular movements were intact and pupils were equal round and reactive to light. Eyelids were unremarkable. PULMONARY: Unlabored respirations. Good breath sounds bilaterally. No audible rales rhonchi or wheezing was noted. CARDIOVASCULAR: There is a regular rate and rhythm without any murmurs gallops or rubs. ABDOMEN: Soft and nontender with normal bowel sounds. SKIN: Skin is clear with no lesions or rashes and otherwise unremarkable. NEUROLOGIC: Patient is alert and oriented x 1. Cranial nerves II through XII are grossly intact. Motor and sensory are also intact. Normal speech, volume and content. Symmetrical smile. MUSCULOSKELETAL: Normal extremities with adequate strength and full range of motion. 2+ bilaterally LYMPHATICS: No significant lymphadenopathy is noted PSYCHIATRIC: Normal psychiatric evaluation. Limitations: altered mental status Course Vital Signs 07/10/24 07/10/24 07/10/24 16:44 17:06 18:26 Temperature 98.1 F Pulse Rate 72 69 71 Respiratory 18 18 18 Rate Blood Pressure 166/97 162/104 165/92 O2 Sat by Pulse 100 100 99 Oximetry 07/10/24 07/10/24 18:40 19:21 Temperature Pulse Rate 56 L 59 L Respiratory 18 17 Rate Blood Pressure 153/88 139/85 O2 Sat by Pulse 97 100 Oximetry Medical Decision Making - Medical Decision Making EKG is interpreted by myself that shows a sinus rhythm at 69 bpm parables under 87 QRS is 115 QT interval is 432 QTc is 450. Patient's EKG shows no ST segment elevation or depression Was pt. sent in by a medical professional or institution ([facility], [facility], urgent care, hospital, or [facility]...) When possible be specific @ -No Did you speak to anyone other than the patient for history (EMS, parent, family, police, friend...)? What history was obtained from this source @ -No Did you review nursing and triage notes (agree or disagree)? Why? @ -I reviewed and agree with nursing and triage notes Were old charts reviewed (outside hosp., previous admission, EMS record, old EKG, old radiological studies, urgent care reports/EKG's, [facility] records)? Report findings @ -No old charts were reviewed Differential Diagnosis? @ -Differential Altered Mental Status: Hypoglycemia, DKA, hypercapnia, ETOH, overdose, CO poisoning, trauma, myxedema coma, HTN encephalopathy, infection, encephalitis, psychosis, intercranial hemorrhage, hepatic encephalopathy, meningitis, CVA, this is not meant to be an all-inclusive list EKG interpreted by me (3pts min.). @ -As above X-rays interpreted by me (1pt min.). @ -Chest x-ray shows no acute CT interpreted by me (1pt min.). @ -CT of the brain shows no acute abnormality U/S interpreted by me (1pt. min.). @ -None done What testing was considered but not performed or refused? (CT, X-rays, U/S, labs)? Why? @ -None What meds were considered but not given or refused? Why? @ -None Did you discuss the management of the patient with other professionals (professionals i.e. [facility], [facility], lab, RT, psych nurse, social worker psychiatric, drilling plant operator, teacher, branch officer, shoe caser)? Give summary @ -I spoke with sound physicians he agreed to admit the patient I spoke with Dr. Queen Was smoking cessation discussed for >3mins.? @ -No Was critical care preformed (if so, how long)? @ -No Were there social determinants of health that impacted care today? How? (Homelessness, low income, unemployed, alcoholism, drug addiction, transportation, low edu. Level, literacy, decrease access to med. care, skilled nursing, rehab)? @ -No Was there de-escalation of care discussed even if they declined (Discuss DNR or withdrawal of care, Hospice)? DNR status @ -No What co-morbidities impacted this encounter? (DM, HTN, Smoking, COPD, CAD, Can cer, CVA, ARF, Chemo, Hep., AIDS, mental health diagnosis, sleep apnea, morbid obesity)? @ -None Was patient admitted / discharged? Hospital course, mention meds given and route, prescriptions, significant lab abnormalities, going to OR and other pertinent info. @ -Patient still remains altered he is alert and oriented x 3 only patient's ammonia level was 39 creatinine 3.65 hemoglobin is 8.3 patient has no alcohol on board but he supposed to have a history of drinking though no one is here to ve rify that to us. This is all per EMS's report. Patient will be started on lactulose CBCs will be repeated and patient will be placed on a CIWA protocol. I also started patient on high dose thiamine because I was not sure if the patient was possibly Warnicke's. Patient is altered patient is ataxic and I did not appreciate any ophthalmoplegia but he was not following any commands. I am assuming his diet is terrible secondary to the fact that he is a drinker but I have no verification of this since no family members are with him Undiagnosed new problem with uncertain prognosis? @ -No Drug Therapy requiring intensive monitoring for toxicity (Heparin, Nitro, Insulin, Cardizem)? @ -No Were any procedures done? @ -No Diagnosis/symptom? @ -Hepatic encephalopathy Acute, or Chronic, or Acute on Chronic? @ -Acute Uncomplicated (without systemic symptoms) or Complicated (systemic symptoms)? @ -Complicated Side effects of treatment? @ -No Exacerbation, Progression, or Severe Exacerbation? @ -No Poses a threat to life or bodily function? How? (Chest pain, [place], [place], pneumonia, PE, COPD, DKA, ARF, appy, cholecystitis, CVA, Diverticulitis, Homicidal, Suicidal, threat to staff... and all critical care pts) @ -Yes this can lead to Diagnosis/symptom? @ -Acute on chronic renal Acute, or Chronic, or Acute on Chronic? @ -Acute on chronic Uncomplicated (without systemic symptoms) or Complicated (systemic symptoms)? @ -Complicated Side effects of treatment? @ -None Exacerbation, Progression, or Severe Exacerbation] @ -No Poses a threat to life or bodily function? @ -Yes this can lead to severe electrolyte abnormalities Diagnosis/symptom? @ -Anemia Acute, or Chronic, or Acute on Chronic? @ -Acute Uncomplicated (without systemic symptoms) or Complicated (systemic symptoms)? @ -Complicated Side effects of treatment? @ -None Exacerbation, Progression, or Severe Exacerbation] @ -No Poses a threat to life or bodily function? @ -Yes this could lead to hypoxia and endorgan dysfunction Diagnosis/symptom? @ -Alcohol abuse Acute, or Chronic, or Acute on Chronic? @ -This chronic Uncomplicated (without systemic symptoms) or Complicated (systemic symptoms)? @ -Complicated Side effects of treatment? @ -None Exacerbation, Progression, or Severe Exacerbation] @ -No Poses a threat to life or bodily function? @ -No - Lab Data Result diagrams: 07/10/24 17:40 07/10/24 17:40 Lab Results 07/10/24 07/10/24 07/10/24 Range/Units 17:16 17:40 17:40 WBC 10.61 H (4.50-10.00) 10*3/uL RBC 2.47 L (4.40-5.60) 10*6/uL Hgb 8.3 L (13.0-17.0) g/dL Hct 22.0 L (39.6-50.0) % MCV 89.1 (80.0-97.0) fL MCH 33.6 H (27.0-32.0) pg MCHC 37.7 H (32.0-37.0) g/dL Plt Count 120 L (140-440) 10*3/uL MPV 9.0 L (9.5-12.2) fL Immature Gran % (Auto) 1.0 % Neutrophils % 71.0 % Lymphocytes % 14.2 % Monocytes % 9.5 % Eosinophils % 3.4 % Basophils % 0.9 % Immature Gran # 0.11 H (0.00-0.04) 10*3/uL Neutrophils # 7.52 (1.80-7.70) 10*3/uL Lymphocytes # 1.51 (0.90-5.00) 10*3/uL Monocytes # 1.01 H (0.20-1.00) 10*3/uL Eosinophils # 0.36 H (0.04-0.35) 10*3/uL Basophils # 0.10 (0.00-0.10) 10*3/uL Manual Slide Review Performed Immature Plt Fraction 0.9 L (1.1-6.1) % Polychromasia Present VBG pH (7.31-7.41) VBG pCO2 (37-51) mmHg VBG HCO3 (24-28) mmol/L Sodium 132 L (137-145) mmol/L Potassium 4.5 (3.5-5.1) mmol/L Chloride 97 L (98-107) mmol/L Carbon Dioxide 24 (22-30) mmol/L Anion Gap 11 mmol/L BUN 23 H (9-20) mg/dL Creatinine 3.65 H (0.66-1.25) mg/dL Est GFR (CKD-EPI)AfAm 21 (>60 ml/min/1.73 sqM) Est GFR (CKD-EPI)NonAf 18 (>60 ml/min/1.73 sqM) Glucose 108 H (74-99) mg/dL Plasma Lactic Acid Edmund (0.7-2.0) mmol/L Calcium 9.9 (8.4-10.2) mg/dL Magnesium 1.9 (1.6-2.3) mg/dL Total Bilirubin 2.6 H (0.2-1.3) mg/dL AST 79 H (17-59) U/L ALT 33 (4-49) U/L Alkaline Phosphatase 114 (38-126) U/L Ammonia (<30) umol/L Total Protein 8.0 (6.3-8.2) g/dL Albumin 3.6 (3.5-5.0) g/dL Lipase 252 (23-300) U/L Urine Color Light Yellow Urine Appearance Clear (Clear) Urine pH 8.0 (5.0-8.0) Ur Specific [place] 1.007 (1.001-1.035) Urine Protein 1+ H (Negative) Urine Glucose (UA) Negative (Negative) Urine Ketones Negative (Negative) Urine Blood Large H (Negative) Urine Nitrite Negative (Negative) Urine Bilirubin Negative (Negative) Urine Urobilinogen <2.0 (<2.0) mg/dL Ur Leukocyte Esterase Negative (Negative) Urine RBC 179 H (0-5) /hpf Urine WBC 3 (0-5) /hpf Urine WBC Clumps Rare H (None) /hpf Urine Mucus Rare H (None) /hpf Salicylates <1.0 mg/dL Urine Opiates Screen Not Detected (NotDetected) Ur Oxycodone Screen Not Detected (NotDetected) Urine Methadone Screen Not Detected (NotDetected) Acetaminophen <10.0 ug/mL Ur Barbiturates Screen Not Detected (NotDetected) U Tricyclic Antidepress Not Detected (NotDetected) Ur Phencyclidine Scrn Not Detected (NotDetected) Ur Amphetamines Screen Not Detected (NotDetected) U Methamphetamines Scrn Not Detected (NotDetected) U Benzodiazepines Scrn Not Detected (NotDetected) Urine Cocaine Screen Not Detected (NotDetected) U Marijuana (THC) Screen Detected H (NotDetected) Serum Alcohol <10 mg/dL 07/10/24 07/10/24 Range/Units 17:40 18:23 WBC (4.50-10.00) 10*3/uL RBC (4.40-5.60) 10*6/uL Hgb (13.0-17.0) g/dL Hct (39.6-50.0) % MCV (80.0-97.0) fL MCH (27.0-32.0) pg MCHC (32.0-37.0) g/dL Plt Count (140-440) 10*3/uL MPV (9.5-12.2) fL Immature Gran % (Auto) % Neutrophils % % Lymphocytes % % Monocytes % % Eosinophils % % Basophils % % Immature Gran # (0.00-0.04) 10*3/uL Neutrophils # (1.80-7.70) 10*3/uL Lymphocytes # (0.90-5.00) 10*3/uL Monocytes # (0.20-1.00) 10*3/uL Eosinophils # (0.04-0.35) 10*3/uL Basophils # (0.00-0.10) 10*3/uL Manual Slide Review Immature Plt Fraction (1.1-6.1) % Polychromasia VBG pH 7.40 (7.31-7.41) VBG pCO2 42 (37-51) mmHg VBG HCO3 26 (24-28) mmol/L Sodium (137-145) mmol/L Potassium (3.5-5.1) mmol/L Chloride (98-107) mmol/L Carbon Dioxide (22-30) mmol/L Anion Gap mmol/L BUN (9-20) mg/dL Creatinine (0.66-1.25) mg/dL Est GFR (CKD-EPI)AfAm (>60 ml/min/1.73 sqM) Est GFR (CKD-EPI)NonAf (>60 ml/min/1.73 sqM) Glucose (74-99) mg/dL Plasma Lactic Acid Edmund 2.0 (0.7-2.0) mmol/L Calcium (8.4-10.2) mg/dL Magnesium (1.6-2.3) mg/dL Total Bilirubin (0.2-1.3) mg/dL AST (17-59) U/L ALT (4-49) U/L Alkaline Phosphatase (38-126) U/L Ammonia 39 H (<30) umol/L Total Protein (6.3-8.2) g/dL Albumin (3.5-5.0) g/dL Lipase (23-300) U/L Urine Color Urine Appearance (Clear) Urine pH (5.0-8.0) Ur Specific [place] (1.001-1.035) Urine Protein (Negative) Urine Glucose (UA) (Negative) Urine Ketones (Negative) Urine Blood (Negative) Urine Nitrite (Negative) Urine Bilirubin (Negative) Urine Urobilinogen (<2.0) mg/dL Ur Leukocyte Esterase (Negative) Urine RBC (0-5) /hpf Urine WBC (0-5) /hpf Urine WBC Clumps (None) /hpf Urine Mucus (None) /hpf Salicylates mg/dL Urine Opiates Screen (NotDetected) Ur Oxycodone Screen (NotDetected) Urine Methadone Screen (NotDetected) Acetaminophen ug/mL Ur Barbiturates Screen (NotDetected) U Tricyclic Antidepress (NotDetected) Ur Phencyclidine Scrn (NotDetected) Ur Amphetamines Screen (NotDetected) U Methamphetamines Scrn (NotDetected) U Benzodiazepines Scrn (NotDetected) Urine Cocaine Screen (NotDetected) U Marijuana (THC) Screen (NotDetected) Serum Alcohol mg/dL Disposition Clinical Impression: Hepatic encephalopathy, Alcohol abuse, Anemia, Renal failure Disposition: ADMITTED IP TO THIS HOSP Referrals: None,Stated [Primary Care Provider] - 1-2 days Time of Disposition: 20:07
[2024-07-10 17:36] LABS: Appearance,Urine Clear (Clear); Bilirubin,Urine Negative (Negative); Blood,Urine Large (Negative); Color,Urine Light Yellow; Glucose,Urine (UA) Negative (Negative); Ketones,Urine Negative (Negative); Leukocyte Esterase,Urine Negative (Negative); Mucus,Urine Rare /hpf; Nitrite,Urine Negative (Negative); Protein,Urine 1+ (Negative); RBC,Urine 179 /hpf (0-5); Specific Gravity,Urine 1.007 (1.001-1.035); Urobilinogen,Urine <2.0 mg/dL (<2.0); WBC,Urine 3 /hpf (0-5)
[2024-07-10 17:37] LABS: Amphetamine Screen,Urine Not Detected (NotDetected); Barbiturate Screen,Urine Not Detected (NotDetected); Benzodiazepines Screen,Urine Not Detected (NotDetected); Cocaine Screen,Urine Not Detected (NotDetected); Methadone Screen, Urine Not Detected (NotDetected); Opiate Screen,Urine Not Detected (NotDetected); Oxycodone Screen, Urine Not Detected (NotDetected); Phencyclidine Screen,Urine Not Detected (NotDetected); Tricyclic Antidepressant,Urine Not Detected (NotDetected); Urn Cannabinoid Scrn Detected (NotDetected)
[2024-07-10 18:05] LABS: Basophils % (A) 0.9 %; Eosinophils # (A) 0.36 10*3/uL (0.04-0.35); Eosinophils % (A) 3.4 %; HGB 8.3 g/dL (13.0-17.0); Immature Platelet Fraction 0.9 % (1.1-6.1); Lymphocytes # (A) 1.51 10*3/uL (0.90-5.00); Lymphocytes % (A) 14.2 %; MCH 33.6 pg (27.0-32.0); MCHC 37.7 g/dL (32.0-37.0); MCV 89.1 fL (80.0-97.0); Monocytes # (A) 1.01 10*3/uL (0.20-1.00); Monocytes % (A) 9.5 %; Neutrophils # (A) 7.52 10*3/uL (1.80-7.70); Platelet Count 120 10*3/uL (140-440); RBC 2.47 10*6/uL (4.40-5.60); RDW 14.6 % (11.5-14.5); WBC 10.61 10*3/uL (4.50-10.00)
[2024-07-10 18:09] LABS: ALT 33 U/L (4-49); AST 79 U/L (17-59); Acetaminophen <10.0 ug/mL; African American GFR (CKD) 21 (>60 ml/min/1.73 sqM); Albumin 3.6 g/dL (3.5-5.0); Alcohol <10 mg/dL; Alkaline Phosphatase 114 U/L (38-126); Anion Gap 11 mmol/L; Blood Urea Nitrogen 23 mg/dL (9-20); Calcium 9.9 mg/dL (8.4-10.2); Carbon Dioxide 24 mmol/L (22-30); Chloride 97 mmol/L (98-107); Glucose 108 mg/dL (74-99); Lipase 252 U/L (23-300); Magnesium 1.9 mg/dL (1.6-2.3); Non-African American GFR(CKD) 18 (>60 ml/min/1.73 sqM); Potassium 4.5 mmol/L (3.5-5.1); Salicylate <1.0 mg/dL; Sodium 132 mmol/L (137-145); Total Bilirubin 2.6 mg/dL (0.2-1.3)
--- NOTE | 2024-07-10 18:17 | CT ---
EXAMINATION TYPE: CT brain wo con DATE OF EXAM: 07/10/2024 6:11 PM COMPARISON: None. CLINICAL INDICATION: Male, 54 years old with history of Altered mental status, confusion, ams TECHNIQUE: CT of the brain is performed utilizing 3 mm thick sections through the posterior fossa and 3 mm thick sections through the remaining calvarium. Study is performed within 24 hours of arrival to the hospital. Contrast used: mL of , (none if empty) CT DLP: 1199.9 mGycm, Automated exposure control for dose reduction was used. FINDINGS: No abnormal hyperdensity is present to suggest an acute intracranial hemorrhage. No mass lesion is evident. No acute infarcts are evident. Ventricles and sulci are appropriate for the patient age. Paranasal sinuses and mastoid air cells within the [id number] are clear. IMPRESSION: 1. No acute intracranial process. Follow up MRI can be performed as clinically indicated. [facility], Workstation: [facility], 07/10/2024 6:15 PM
--- NOTE | 2024-07-10 18:22 | XR ---
EXAMINATION TYPE: XR chest 2V DATE OF EXAM: 07/10/2024 6:15 PM COMPARISON: 01/18/2024 CLINICAL INDICATION: Male, 54 years old with history of Difficulty breathing , TECHNIQUE: XR chest 2V view(s) obtained. FINDINGS: The heart size is enlarged. There is a port present on the right with the tips in the right atrium. The pulmonary vasculature is normal. There may be a small left pleural effusion at the costophrenic angle.. IMPRESSION: 1. Suggestion of a small left pleural effusion at the costophrenic angle. 2. Cardiomegaly [facility], Workstation: [id number], 07/10/2024 6:19 PM
[2024-07-10 18:32] LABS: VBG PH 7.4 (7.31-7.41)
[2024-07-10 19:22] VITALS: RESP 17
[2024-07-10 19:34] LABS: Polychromasia Present
[2024-07-10] MEDS ORDERED: LACTULOSE 20 GM/30 ML CUP PO ONE (20:08)
[2024-07-10] MEDS ORDERED: SODIUM CHLORIDE 0.9% 1,000 ML IV ONE (20:08)
[2024-07-10] MEDS ORDERED: LORazepam 1 MG TAB PO PRN ×3 (20:11→21:26)
[2024-07-10] MEDS ORDERED: LORazepam 0.5 MG TAB PO PRN (20:11)
[2024-07-10] MEDS ORDERED: LORazepam 2 MG/ML INJ IV PRN ×3 (20:11)
[2024-07-10] MEDS ORDERED: traMADol 50 MG TAB PO PRN (20:40)
[2024-07-10] MEDS ORDERED: ALBUTEROL NEBULIZED 2.5 MG/3 ML INHALATION PRN (20:40)
[2024-07-10] MEDS ORDERED: CYANOCOBALAMIN 500 MCG TAB PO SCH (20:45)
[2024-07-10] MEDS ORDERED: FOLIC ACID 1 MG TAB PO SCH (20:45)
[2024-07-10] MEDS ORDERED: SPIRONOLACTONE 25 MG TAB PO SCH (20:45)
[2024-07-10 20:53] VITALS: BP 147/90; PULSE 60
[2024-07-10] MEDS ORDERED: PANTOPRAZOLE 40 MG TABLET PO SCH (21:00)
[2024-07-10] MEDS ORDERED: FUROSEMIDE 10 MG/ML 4 ML VIAL IV SCH (21:00)
[2024-07-10] MEDS ORDERED: THIAMINE 500 MG in SODIUM CHLORIDE 0.9% 50 ML IVPB SCH (21:00)
--- NOTE | 2024-07-10 21:02 | P.HPIM ---
History of Present Illness H&P Date: 07/10/24 History of present illness; Patient is a 54-year-old male with COPD, hypertension, liver cirrhosis with history of alcohol use disorder, CKD on renal dialysis who presents with altered mental status. Patient is a poor historian and is unsure of why he is in the hospital. His mother states that he has gotten more confused over the last 3 days. Patient does attest that he has not taken his lactulose for the last 2 weeks due to increased bowel movements. His mother mother is unsure if patient may have taken some of her prescription medications as well and is unsure of which medications he may have taken if any. He is currently on hemodialysis on Wednesday, , Wednesday. He is denying any other symptoms at this time of fever, chills, chest pain, shortness of breath, abdominal pain, dysuria. Spoke with the ER physician, patient admission was accepted by internal medicine service for treatment. REVIEW OF SYSTEMS: Pertinent positives and negatives noted in HPI. PHYSICAL EXAMINATION: Vitals reviewed GENERAL: Resting comfortably in bed. EYES: PERRL, no scleral injection or icterus. No vision loss HENT: Normocephalic, atraumatic, hearing grossly intact, moist mucous membranes NECK: No tracheal deviation, full range of motion. CARDIOVASCULAR: S1 and S2 present. No murmurs, rubs, or gallops. PULMONARY: Chest is clear to auscultation, no wheezing, rhonchi, or crackles. ABDOMEN: Soft, nontender, moderately distended, no palpable organomegaly. MUSCULOSKELETAL: No apparent joint swelling and deformities. Right chest wall catheter present EXTREMITIES: No apparent cyanosis, clubbing. 2+ pedal edema. NEUROLOGICAL: Alert and oriented x2. Gross neurological examination with no apparent focal deficits. SKIN: No apparent rashes. ER FINDINGS: Labs significant for WBC 10.6, hemoglobin 8.3, platelets 120, sodium 132, chloride 97, BUN 23, creatinine 3.6, glucose 108, bilirubin 2.6, AST 79, ALP 39, ammonia 39, UA significant for protein 1+, blood large, leukocyte esterase negative, RBC 179, urine toxicology negative other than marijuana. EKG independently interpreted showed sinus rhythm heart rate of 69, QTc 450, no ST segment elevation or depression seen, no T-wave inversions seen. Chest x-ray done independently interpreted showed small left pleural effusion at the costophrenic angle, cardiomegaly. CT head independently interpreted showed no acute intracranial process. Assessment and Plan: In summary, patient is a 54-year-old male with COPD, hypertension, liver cirrhosis with history of alcohol use disorder, CKD on renal dialysis who presents with altered mental status. #Acute hepatic vs metabolic encephalopathy, likely due to lactulose nonadherence vs infection #Leukocytosis, r/o infection #History of alcohol dependence #Liver cirrhosis CT brain, UDS unremarkable -Ammonia 39 -Blood cultures ordered Begin lactulose 30 g 4 times daily, titrate to 3-5 bowel movements daily -Begin CIWA protocol with Ativan Begin vitamin supplementation Resume home medications Monitor BMP #CKD stage IV on hemodialysis Wednesday, , Wednesday #Fluid overloaded #Bilateral lower extremity edema due to above #Bicytopenia #Hypervolemic hyponatremia Begin potassium supplementation Monitor CMP Plan dialysis tomorrow for fluid management Nephrology consulted #Hematuria #Anemia UA with significant blood CTAP to rule out nephrolithiasis Monitor CBC Chronic Medical Conditions #Hypertension #GERD #History of opioid use Resume home medications DVT ppx: scds Code status: Full code F: P.o. E: Replete as needed N: Heart healthy diet A: Ambulatory Anticipated discharge place: Pending clinical course Anticipated discharge time: Pending clinical course Dictation was produced using [employer] dictation software. Please excuse any grammatical, word or spelling errors. Past Medical History Past Medical History: Heart Failure, COPD, Hypertension, Liver Disease Additional Past Medical History / Comment(s): cirrhosis, alcoholism, ascites History of Any Multi-Drug Resistant Organisms: None Reported Additional Past Surgical History / Comment(s): L Lung removed Past Anesthesia/Blood Transfusion Reactions: No Reported Reaction Past Psychological History: Depression Smoking Status: Never smoker Past Alcohol Use History: Abuse, Heavy Past Drug Use History: None Reported Medications and Allergies Home Medications Medication Instructions Recorded Confirmed Type Albuterol Inhaler [Ventolin Hfa 1 puff INHALATION RT-Q4H PRN 12/31/23 07/10/24 History Inhaler] Buprenorphine/Naloxone 8Mg/2Mg 0.5 film SL DAILY 12/31/23 07/10/24 History [Suboxone 8-2Mg Film] FLUoxetine HCL [PROzac] 10 mg PO DAILY 12/31/23 07/10/24 History Folic Acid 5 mg PO DAILY 12/31/23 07/10/24 History Lactulose [Constulose] 20 gm PO TID PRN 12/31/23 07/10/24 History Potassium Chloride ER [K-Dur 20] 20 meq PO DAILY 12/31/23 07/10/24 History traMADol HCL 50 mg PO TID PRN 01/18/24 07/10/24 History Empagliflozin [Jardiance] 10 mg PO DAILY 07/10/24 07/10/24 History Ferrous Sulfate [Feosol] 325 mg PO DAILY 07/10/24 07/10/24 History Furosemide [Lasix] 40 mg PO DAILY 07/10/24 07/10/24 History LORazepam [Ativan] 0.5 mg PO TID PRN 07/10/24 07/10/24 History Metoprolol Succinate (ER) [Toprol 25 mg PO DAILY 07/10/24 07/10/24 History Xl] Dkusxkot-Yaudheihar-Vbem Oint 1 applic TOPICAL BID PRN 07/10/24 07/10/24 History [Triple Antibiotic Ointment] Pantoprazole Sodium [Protonix] 40 mg PO BID 07/10/24 07/10/24 History Spironolactone 50 mg PO DIRECTED 07/10/24 07/10/24 History Allergies Allergy/AdvReac Type Severity Reaction Status Date / Time chlordiazepoxide Allergy Hallucinati Verified 07/10/24 20:10 [From Librium] ons lisinopril Allergy Anaphylaxis Verified 07/10/24 20:10 Physical Exam Vitals: Vital Signs Temp Pulse Resp BP Pulse Ox 07/10/24 19:21 59 L 17 139/85 100 07/10/24 18:40 56 L 18 153/88 97 07/10/24 18:26 71 18 165/92 99 07/10/24 17:06 69 18 162/104 100 07/10/24 16:44 98.1 F 72 18 166/97 100 Intake and Output 07/10/24 07/10/24 07/10/24 06:59 14:59 22:59 Other: Weight 81.647 kg Results CBC & Chem 7: 07/10/24 17:40 07/10/24 17:40 Labs: Abnormal Lab Results - Last 24 Hours (Table) 07/10/24 07/10/24 07/10/24 Range/Units 17:16 17:40 17:40 WBC 10.61 H (4.50-10.00) 10*3/uL RBC 2.47 L (4.40-5.60) 10*6/uL Hgb 8.3 L (13.0-17.0) g/dL Hct 22.0 L (39.6-50.0) % MCH 33.6 H (27.0-32.0) pg MCHC 37.7 H (32.0-37.0) g/dL Plt Count 120 L (140-440) 10*3/uL MPV 9.0 L (9.5-12.2) fL Immature Gran # 0.11 H (0.00-0.04) 10*3/uL Monocytes # 1.01 H (0.20-1.00) 10*3/uL Eosinophils # 0.36 H (0.04-0.35) 10*3/uL Immature Plt Fraction 0.9 L (1.1-6.1) % Sodium 132 L (137-145) mmol/L Chloride 97 L (98-107) mmol/L BUN 23 H (9-20) mg/dL Creatinine 3.65 H (0.66-1.25) mg/dL Glucose 108 H (74-99) mg/dL Total Bilirubin 2.6 H (0.2-1.3) mg/dL AST 79 H (17-59) U/L Ammonia (<30) umol/L Urine Protein 1+ H (Negative) Urine Blood Large H (Negative) Urine RBC 179 H (0-5) /hpf Urine WBC Clumps Rare H (None) /hpf Urine Mucus Rare H (None) /hpf U Marijuana (THC) Screen Detected H (NotDetected) 07/10/24 Range/Units 17:40 WBC (4.50-10.00) 10*3/uL RBC (4.40-5.60) 10*6/uL Hgb (13.0-17.0) g/dL Hct (39.6-50.0) % MCH (27.0-32.0) pg MCHC (32.0-37.0) g/dL Plt Count (140-440) 10*3/uL MPV (9.5-12.2) fL Immature Gran # (0.00-0.04) 10*3/uL Monocytes # (0.20-1.00) 10*3/uL Eosinophils # (0.04-0.35) 10*3/uL Immature Plt Fraction (1.1-6.1) % Sodium (137-145) mmol/L Chloride (98-107) mmol/L BUN (9-20) mg/dL Creatinine (0.66-1.25) mg/dL Glucose (74-99) mg/dL Total Bilirubin (0.2-1.3) mg/dL AST (17-59) U/L Ammonia 39 H (<30) umol/L Urine Protein (Negative) Urine Blood (Negative) Urine RBC (0-5) /hpf Urine WBC Clumps (None) /hpf Urine Mucus (None) /hpf U Marijuana (THC) Screen (NotDetected) Assessment and Plan Plan: The patient was seen and examined by me. I have reviewed and discussed with the resident and agree with the resident findings. At the time of my examination the patient was alert and oriented x 3. He was able to recount his history he wants to follow up with his [employer] . Discussed with RN patient was given AMA papers and risks of discharge without completing workup were discussed with him. The patient signed out AMA.
[2024-07-10] MEDS ORDERED: LACTULOSE 20 GM/30 ML CUP PO SCH (22:00)
[2024-07-11] MEDS ORDERED: METOPROLOL SUCCINATE (ER) 25 MG TAB.ER.24H PO SCH (09:00)
[2024-07-11] MEDS ORDERED: FERROUS SULFATE 325 MG TAB PO SCH (09:00)
[2024-07-11] MEDS ORDERED: POTASSIUM CHLORIDE ER 20 MEQ TAB.ER PO SCH (09:00)
[2024-07-11] MEDS ORDERED: LACTULOSE 20 GM/30 ML CUP PO SCH (09:00)
[2024-07-11] MEDS ORDERED: FLUoxetine HCL 10 MG CAP PO SCH (09:00)
== END 2024-07-10 21:53 | disposition left against medical advice (07) ==
LOC: EC 16:40 → UNDOADMIN 20:14 → 5NMEDONC 20:14 → UNDODISIN 21:55
DX: K76.82 Hepatic encephalopathy (principal); I13.0 Hypertensive heart and chronic kidney disease with heart failure and stage 1 through stage 4 chronic kidney disease, or unspecified chronic kidney disease; F32.A Depression, unspecified; G93.41 Metabolic encephalopathy; D72.829 Elevated white blood cell count, unspecified; T47.3X6A Underdosing of saline and osmotic laxatives, initial encounter; R31.9 Hematuria, unspecified; E87.70 Fluid overload, unspecified; I31.2 Hemopericardium, not elsewhere classified; N18.6 End stage renal disease; Z99.2 Dependence on renal dialysis; D63.1 Anemia in chronic kidney disease; E87.1 Hypo-osmolality and hyponatremia; K70.30 Alcoholic cirrhosis of liver without ascites; F10.20 Alcohol dependence, uncomplicated; J44.9 Chronic obstructive pulmonary disease, unspecified; Z91.128 Patient's intentional underdosing of medication regimen for other reason; Z28.21 Immunization not carried out because of patient refusal
CPT/HCPCS: 99285; 36415; 93005; 80053; 82140; 82803; 83605; 83690; 83735; 85025; 81001; 80306; 80143; 80179; 71046; 70450; G0480; 80320